=== PATIENT | female | born 1965 | race Caucasian/White ===

== ENCOUNTER → 2021-06-11 08:57 | Outpatient (BNVA) | payer SELFPAY | PROVIDERS: Visit Provider Nurse Practitioner Family | DX: M79.641 Pain in right hand (principal); E78.5 Hyperlipidemia, unspecified; Z78.0 Asymptomatic menopausal state; F17.200 Nicotine dependence, unspecified, uncomplicated; M19.041 Primary osteoarthritis, right hand | CPT/HCPCS: 73130; 80053; 80061; 82306; 84443; 85025 ==

== ENCOUNTER → 2021-10-18 08:33 | Outpatient (BNVA) | payer SELFPAY | PROVIDERS: Visit Provider Nurse Practitioner Family | DX: R06.00 Dyspnea, unspecified (principal); E78.5 Hyperlipidemia, unspecified; Z79.899 Other long term (current) drug therapy | CPT/HCPCS: 71046; 80053; 80061 ==

== ENCOUNTER → 2022-04-08 12:04 | Outpatient (BNVA) | payer SELFPAY | PROVIDERS: Visit Provider Nurse Practitioner Family | DX: E78.5 Hyperlipidemia, unspecified (principal); M79.7 Fibromyalgia; F32.A Depression, unspecified; F43.21 Adjustment disorder with depressed mood; F17.200 Nicotine dependence, unspecified, uncomplicated; Z12.2 Encounter for screening for malignant neoplasm of respiratory organs; K59.00 Constipation, unspecified; J45.909 Unspecified asthma, uncomplicated | CPT/HCPCS: 80053; 80061 ==

== ENCOUNTER 2022-06-06 12:57 | Emergency (ER) | payer MEDICAID, SELFPAY ==
[2022-06-06] VITALS (18 sets, daily range): BP systolic 112–164; BP diastolic 50–99; PULSE 61–73; RESP 13–24; O2SAT 93–99; BMI 23.3
--- NOTE | 2022-06-06 13:02 | XRR_ITS ---
PROCEDURE INFORMATION: Exam: XR Chest Exam date and time: 06/06/2022 1:27 PM Age: 56 years old Clinical indication: Cough and dyspnea; Additional info: Dyspnea/cough TECHNIQUE: Imaging protocol: Radiologic exam of the chest. Views: 1 view. COMPARISON: CR XR chest 2V* [id number] 10/18/2021 8:38 AM FINDINGS: Lungs: Unremarkable. No consolidation. Pleural spaces: Unremarkable. No pleural effusion. No pneumothorax. Heart/Mediastinum: Unremarkable. No cardiomegaly. Bones/joints: Unremarkable. XR/XR chest 1V portable [id number] IMPRESSION: No acute findings.
--- NOTE | 2022-06-06 13:02 | ECG_ITS ---
[facility] Test Date: 2022-06-06 Pat Name: Brooke Quiroga Department: Room: Gender: Female Acquisition Advisor: : 1965 Requested By: Case Bearden Order Number: [id number] Mei MD: Natividad Singletary M.D. Measurements Intervals [place] Rate: 62 P: 82 AR: 136 QRS: 73 QRSD: 86 T: 74 QT: 413 QTc: 422 Interpretive Statements SINUS RHYTHM No previous ECG available for comparison Electronically Signed On 06-07-2022 9:23:49 CUSTOMER CONTACT SPECIALIST by Natividad Singletary M.D. [id number]
--- NOTE | 2022-06-06 13:03 | ED_ITS ---
HPI - Chest Pain General: Chief Complaint: Chest Pain Stated Complaint: CHEST PRESSURE Time Seen by Provider: 06/06/22 13:01 Source: patient Mode of arrival: EMS History of Present Illness: 56-year-old female presents emergency room complaining of chest pressure and dizziness vertiginous-like dizziness with tingling in both arms she has also been nauseous. She has a chest discomfort that is notthing that worsens or improves. She was given nitro sublingual as well as 324 aspirin and no relief of her symptoms. The dizziness is a new symptom today. She did have a little bit of left ear pain with it as well no drainage from the ear. No fever sweats or chills no productive cough no shortness of breath. MD complaint: chest discomfort Timing of current episode: episodic Prior episodes: No Onset: during rest Pain location: left chest Pain radiation: none Severity: mild Quality: aching and heaviness Relieving factors: nothing Exacerbating factors: nothing Associated symptoms: Deny abdominal pain, diaphoresis, dyspnea, fever(s), leg edema, nausea, palpitations or vomiting Review of Systems Const: Denies: fever(s), chills or diaphoresis ENMT: Denies: throat pain, ear or mastoid pain, nasal discharge or nasal congestion Card: Reports: chest pain; Denies: palpitations, irregular heart rhythm, edema, dyspnea on exertion or orthopnea Resp: Reports: non-productive cough and wheezing; Denies: dyspnea or productive cough GI: Denies: abdominal pain, nausea or vomiting : Denies: flank pain, difficulty voiding, dysuria, urinary frequency or urinary urgency Skin/Breast: Denies: rash or pruritus Neuro: Denies: headache(s) PFSH ED PFSH: Medical History Arthritis Hyperlipidemia Family History Other CAD (coronary artery disease) Cancer Diabetes Hyperlipidemia Hypertension Lung disease Stroke Social History Smoking and tobacco status: never smoked Physical Exam Const: GENERAL APPEARANCE: cooperative and comfortable ORIENTATION/CONSCIOUSNESS: Yes awake HENMT: COMMON NORMALS: normocephalic, atraumatic, hearing grossly normal bila terally, external ears normal, EAC's normal, TM's normal bilaterally, Normal nasal mucous membranes and turbinates present, moist oral mucous membranes and oropharynx normal HEAD & SCALP: normocephalic and atraumatic NOSE: Normal nasal mucous membranes and turbinates present EXTERNAL EAR: Yes external ears normal EXTERNAL AUDITORY CANAL: EAC's normal TYMPANIC MEMBRANE: TM's normal bilaterally Resp: COMMON NORMALS: normal respiratory effort, No retractions and No use of accessory muscles AUSCULTATION: rhonchi and wheezes Cardio: COMMON NORMALS: regular rate, regular rhythm and No murmurs present (Cardio) RATE: regular rate RHYTHM: regular rhythm GI: COMMON NORMALS: Soft to palpation and No hepatosplenomegaly present AUSCULTATION: Yes normoactive bowel sounds PALPATION: Yes Soft to palpation, No Tenderness to palpation present (GI), No Guarding due to palpation present (GI) and Yes No hepatosplenomegaly present Extremity: COMMON NORMALS: normal to inspection, capillary refill normal, no clubbing, cyanosis or edema, no calf tenderness and no pedal edema Skin: COMMON NORMALS: no rashes or lesions noted GENERAL SKIN EXAM: no rashes or lesions noted Course Vital Signs: Vital signs: Vital Signs Pulse Rate 61 06/06/22 17:30 Respiratory Rate 24 H 06/06/22 17:30 Blood Pressure 117/64 06/06/22 17:30 Pulse Oximetry 95 06/06/22 17:30 Oxygen Delivery Me thod 06/06/22 13:26 MDM - Chest Pain Medical Decision Making Labs imaging and EKG reviewed in chart no acute ST changes on EKG. Chest x-ray shows hyperinflation consistent with COPD but otherwise normal. No significant lymphocytopenia do not suspect COVID at this point. Discharge patient home with supportive cares steroid taper and albuterol as needed follow-up with primary care if not improving Medical Records I reviewed the patient's medical records. Lab Data I reviewed the patient's lab results. 06/06/22 13:20 06/06/22 13:20 Radiology Impressions Chest X-Ray 06/06/22 13:02 IMPRESSION: No acute findings. Laboratory Results WBC 6.2 10^3/uL (4.0-10.0) 06/06/22 13:20 RBC 4.66 10^6/uL (4.1-5.3) 06/06/22 13:20 Hgb 15.0 g/dL (11.5-15.3) 06/06/22 13:20 Hct 45.7 % (37.0-47.0) 06/06/22 13:20 MCV 98.1 fl (81-99) 06/06/22 13:20 MCH 32.2 pg (28.0-34.0) 06/06/22 13:20 MCHC 32.8 g/dL (30.0-36.0) 06/06/22 13:20 RDW 14.0 % (12.1-15.1) 06/06/22 13:20 Plt Count 335 10^3/cmm (130-400) 06/06/22 13:20 MPV 9.2 fL (7.4-10.4) 06/06/22 13:20 Neut % (Auto) 64.8 % 06/06/22 13:20 Lymph % (Auto) 25.1 % 06/06/22 13:20 [place] % (Auto) 7.4 % 06/06/22 13:20 Eos % (Auto) 1.9 % 06/06/22 13:20 Baso % (Auto) 0.6 % 06/06/22 13:20 Neut # (Auto) 4.00 10^3/uL (1.8-7.7) 06/06/22 13:20 Lymph # (Auto) 1.6 10^3/uL (0.8-4.8) 06/06/22 13:20 [place] # (Auto) 0.5 10^3/uL (0.2-0.9) 06/06/22 13:20 Eos # (Auto) 0.1 10^3/uL (0.0-0.8) 06/06/22 13:20 Baso # (Auto) 0.0 10^3/uL (0.0-0.1) 06/06/22 13:20 Nucleated RBC % (auto) 0 % 06/06/22 13:20 Nucleated RBCs # 0.0 /100WBC 06/06/22 13:20 Sodium 141 mmol/L (136-145) 06/06/22 13:20 Potassium 3.9 mmol/L (3.5-5.1) 06/06/22 13:20 Chloride 103 mmol/L (98-107) 06/06/22 13:20 Carbon Dioxide 28 mmol/L (22-29) 06/06/22 13:20 Anion Gap 13.9 (5-19) 06/06/22 13:20 BUN 7 mg/dL (6-20) 06/06/22 13:20 Creatinine 0.5 mg/dL (0.5-0.9) 06/06/22 13:20 GFR Calculation 127.6 mL/min (90-130) 06/06/22 13:20 Glucose 113 mg/dL (65-115) 06/06/22 13:20 Calculated Osmolality 291 mOsm/kg (285-295) 06/06/22 13:20 Calcium 9.1 mg/dL (8.5-10.5) 06/06/22 13:20 Total Bilirubin 0.3 mg/dL (0.15-1.2) 06/06/22 13:20 AST 25 U/L (0-32) 06/06/22 13:20 ALT 23 U/L (0-33) 06/06/22 13:20 Alkaline Phosphatase 71 U/L (35-105) 06/06/22 13:20 Troponin T Baseline 7 ng/L (0-10) 06/06/22 13:20 Troponin T 120 Minute 7.71 ng/L (0-10) 06/06/22 16:24 Delta Troponin T 0.71 ABS# (0-10) 06/06/22 16:24 Total Protein 7.3 g/dL (6.6-8.7) 06/06/22 13:20 Albumin 4.6 g/dL (3.5-5.2) 06/06/22 13:20 Globulin 2.7 g/dL (1.3-4.6) 06/06/22 13:20 Coronavirus 229E (PCR) Cancelled 06/06/22 14:23 Influenza Type A Ag Cancelled 06/06/22 14:23 Influenza Type B Ag Cancelled 06/06/22 14:23 SARS-CoV-2 (PCR) Cancelled 06/06/22 14:23 Discharge Plan Discharge Patient Disposition: Home Clinical Impression: COPD with acute exacerbation Condition: Stable Prescriptions: New albuterol sulfate 90 mcg/actuation HFA aerosol inhaler 2 inh INHALATION Q4H PRN (Reason: shortness of breath or wheezing) Qty: 18 0RF No Action epinephrine [EpiPen] 0.3 mg/0.3 mL auto-injector 0.3 mg IM Q10M PRN Rx Instructions: for 2 doses celecoxib [Celebrex] 100 mg capsule 100 mg PO BID 90 Days Qty: 180 1RF diclofenac sodium [Voltaren Arthritis Pain] 1 % gel 2 g topical QID Qty: 100 6RF polyethylene glycol 3350 [Miralax] 17 gram/dose powder 17 g PO BID Qty: 510 3RF simvastatin 40 mg tablet 40 mg PO DAILY 30 Days Qty: 30 3RF duloxetine 30 mg capsule,delayed release(DR/EC) 30 mg PO DAILY 30 Days Qty: 30 3RF alprazolam 0.25 mg tablet 0.25 mg PO .Qhs PRN (Reason: anxiety) 30 Days Qty: 30 0RF cholecalciferol (vitamin D3) 50 mcg (2,000 unit) capsule 50 mcg PO DAILY 90 Days Qty: 90 1RF Discharge Orders: Discharge ED (Routine); Ordered 06/06/22 Ordered By: Case Norris Discharge Diet: Usual diet Discharge Activity: Resume usual activity Patient Instructions: Opioid Safety, Pain Management Activity Restrictions/Additional Instructions: You were seen today for atypical chest pain. Your cardiac enzymes and EKGs were normal. Chest x-ray was normal as well. I suspect you have some some mild COPD that is exacerbated. Recommend that you use a steroid taper and use a lbuterol every 4 hours while awake for the next several days follow-up with your primary care doctor. Coding Level of Care Code ED Costume Cutter for Chg Fwd Exam Detailed
[2022-06-06 13:28] LABS: Basophils % 0.6 %; Eosinophils # 0.1 10^3/uL (0.0-0.8); Eosinophils % 1.9 %; Hematocrit 45.7 % (37.0-47.0); Lymphocytes # 1.6 10^3/uL (0.8-4.8); Lymphocytes % 25.1 %; Mean Corpuscular HGB Conc 32.8 g/dL (30.0-36.0); Mean Corpuscular Hemoglobin 32.2 pg (28.0-34.0); Mean Corpuscular Volume 98.1 fl (81-99); Mean Platelet Volume 9.2 fL (7.4-10.4); Monocytes # 0.5 10^3/uL (0.2-0.9); Monocytes % 7.4 %; Neutrophils % 64.8 %; Nucleated Red Blood Cells % 0 %; Platelet Count 335 10^3/cmm (130-400); Red Blood Count 4.66 10^6/uL (4.1-5.3); White Blood Count 6.2 10^3/uL (4.0-10.0)
[2022-06-06] MEDS: LORazepam 2 mg Tablet PO (13:40)
[2022-06-06 13:53] LABS: Troponin(5th) Baseline 7 ng/L (0-10)
[2022-06-06 13:54] LABS: Alanine Aminotransferase 23 U/L (0-33); Albumin Level 4.6 g/dL (3.5-5.2); Alkaline Phosphatase 71 U/L (35-105); Anion Gap 13.9 (5-19); Aspartate Amino Transferase 25 U/L (0-32); Blood Urea Nitrogen 7 mg/dL (6-20); Calcium 9.1 mg/dL (8.5-10.5); Carbon Dioxide 28 mmol/L (22-29); Chloride 103 mmol/L (98-107); Globulin 2.7 g/dL (1.3-4.6); Glomerular Filtration Rate 127.6 mL/min (90-130); Glucose 113 mg/dL (65-115); Osmolality Calculated 291 mOsm/kg (285-295); Potassium 3.9 mmol/L (3.5-5.1); Sodium 141 mmol/L (136-145); Total Bilirubin 0.3 mg/dL (0.15-1.2); Total Protein 7.3 g/dL (6.6-8.7)
--- NOTE | 2022-06-06 14:53 | ECG_ITS ---
[facility] Test Date: 2022-06-06 Pat Name: Brooke Quiroga Department: Room: Gender: Female Tetryl Screen Operator: : 1965 Requested By: Case Bearden Order Number: [id number] Mei MD: Natividad Singletary M.D. Measurements Intervals [place] Rate: 63 P: 70 FL: 137 QRS: 63 QRSD: 80 T: 63 QT: 410 QTc: 421 Interpretive Statements SINUS RHYTHM Compared to ECG 06/06/2022 13:11:12 No significant changes Electronically Signed On 06-07-2022 20:40:52 NURSE INFORMATICS EDUCATOR by Natividad Singletary M.D. [email or web address] [email or web address] Biosciencesmarymount [email or web address]/[id number]
[2022-06-06 17:01] LABS: Troponin 5 2HR 7.71 ng/L (0-10)
[2022-06-06 17:13] LABS: Troponin 5 2HR Delta 0.71 ABS# (0-10)
== END 2022-06-06 18:00 | disposition home or self-care (01) ==
PROVIDERS: Emergency Provider Family Medicine
DX: J44.1 Chronic obstructive pulmonary disease with (acute) exacerbation (principal); Z20.822 Contact with and (suspected) exposure to COVID-19; E78.5 Hyperlipidemia, unspecified
CPT/HCPCS: 36415; 71045; 80053; 84484; 85025; 93005; 99285

== ENCOUNTER 2022-06-07 16:36 | Emergency (ER) | payer MEDICAID, SELFPAY ==
[2022-06-07 16:51] VITALS: BP 146/73; PULSE 58; RESP 16; TEMP 36.8; O2SAT 98; BMI 23.5
[2022-06-07 16:55] VITALS: BP 146/73; PULSE 65; RESP 17; O2SAT 98
--- NOTE | 2022-06-07 17:14 | W.ED.CHESTPA ---
HPI - Chest Pain General: Chief Complaint: Chest Pain Stated Complaint: Chest Pain Time Seen by Provider: 06/07/22 17:14 History of Present Illness: Ms Quiroga is a 56-year-old lady with history of tobaccoism, hypertension, hyperlipidemia, fibromyalgia presenting to the emergency department due to chest pain. She reports onset of symptoms yesterday starting with intermittent chest pressure, lightheadedness, headache, and tingling. Symptoms are not particularly worsened or made better by anything. Symptoms persisted and she was evaluated yesterday without clear etiology identified. Since time of evaluation symptoms have persisted and are moderate in intensity. Denies frequent history of headaches. No other specific changes in health, exacerbating, or alleviating factors identified. Onset (ago): day(s) Timing of current episode: constant Pain location: substernal Severity: moderate Quality: tightness and aching Relieving factors: nothing Exacerbating factors: nothing Associated symptoms: Reports other Review of Systems General: Reports: 10 or more systems reviewed and unremarkable except in HPI and below PFSH ED PFSH: Medical History Arthritis Hyperlipidemia Family History Other CAD (coronary artery disease) Cancer Diabetes Hyperlipidemia Hypertension Lung disease Stroke Social History Smoking and tobacco status: never smoked Physical Exam Const: COMMON NORMALS: patient oriented x3 and alert GENERAL APPEARANCE: cooperative and well developed HENMT: COMMON NORMALS: normocephalic and atraumatic HEAD & SCALP: normocephalic and atraumatic THROAT: posterior oropharynx normal Eye: COMMON NORMALS: conjunctivae normal CONJUNCTIVA: Yes conjunctivae normal SCLERA: sclerae normal Neck/C-Spine: COMMON NORMALS: supple GENERAL: Yes trachea midline Resp: COMMON NORMALS: normal respiratory effort and clear to auscultation bilaterally EFFORT & INSPECTION: Yes able to speak in complete sentences AUSCULTATION: clear to auscultation bilaterally Cardio: COMMON NORMALS: regular rate and regular rhythm RATE: regular rate RHYTHM: regular rhythm GI: COMMON NORMALS: Soft to palpation PALPATION: Yes Soft to palpation and No Tenderness to palpation present (GI) PERCUSSION: normal to percussion Extremity: GENERAL: Yes normal exam except as noted and No edema Neuro: COMMON NORMALS: patient oriented x3, CN's II-XII intact bilaterally, moves all extremities, no focal motor deficits and no sensory deficits noted SENSORIUM/ORIENTATION: Yes alert and No Orientation impaired Psych: COMMON NORMALS: mental status grossly normal and Normal thought process present THOUGHT PROCESS: Normal thought process present Course Vital Signs: Vital signs: Vital Signs Temperature 98.2 F 06/07/22 16:51 Pulse Rate 62 06/07/22 21:30 Respiratory Rate 15 06/07/22 21:30 Blood Pressure 139/58 06/07/22 21:30 Pulse Oximetry 97 06/07/22 21:30 Oxygen Delivery Me thod 06/07/22 16:55 MDM - Chest Pain Medical Decision Making 56-year-old lady presenting for chest pain and generalized illness. Exam as above. Patient is nontoxic and there are no focal neurologic deficits. EKG shows sinus rhythm with bradycardia, no STEMI. No significant hematologic or metabolic abnormalities. Troponin negative with greater than 6 hours of symptoms. Prior chest x-ray reviewed, given physical exam I do not feel that repeat is needed. CT head negative for acute intracranial pathology. Patient improved with headache cocktail. Most likely etiology of patient's symptoms is headache and atypical chest pain. Patient is comfortable with outpatient follow-up for further evaluation of chest pain. The results of ED evaluation were discussed with the patient including prescriptions and/or symptomatic cares (if applicable) including appropriate and responsible use, followup plan, and return precautions. The patient verbalized understanding and felt safe for discharge. Medical Records I reviewed the patient's medical records. Lab Data I reviewed the patient's lab results. 06/07/22 16:57 06/07/22 16:[address] 06/07/22 17:25 IMPRESSION: No acute intracranial abnormality. Laboratory Results WBC 6.8 10^3/uL (4.0-10.0) 06/07/22 16:57 RBC 4.71 10^6/uL (4.1-5.3) 06/07/22 16:57 Hgb 15.1 g/dL (11.5-15.3) 06/07/22 16:57 Hct 45.7 % (37.0-47.0) 06/07/22 16:57 MCV 97.0 fl (81-99) 06/07/22 16:57 MCH 32.1 pg (28.0-34.0) 06/07/22 16:57 MCHC 33.0 g/dL (30.0-36.0) 06/07/22 16:57 RDW 14.0 % (12.1-15.1) 06/07/22 16:57 Plt Count 334 10^3/cmm (130-400) 06/07/22 16:57 MPV 9.6 fL (7.4-10.4) 06/07/22 16:57 Neut % (Auto) 62.0 % 06/07/22 16:57 Lymph % (Auto) 29.5 % 06/07/22 16:57 [place] % (Auto) 6.7 % 06/07/22 16:57 Eos % (Auto) 1.3 % 06/07/22 16:57 Baso % (Auto) 0.4 % 06/07/22 16:57 Neut # (Auto) 4.22 10^3/uL (1.8-7.7) 06/07/22 16:57 Lymph # (Auto) 2.0 10^3/uL (0.8-4.8) 06/07/22 16:57 [place] # (Auto) 0.5 10^3/uL (0.2-0.9) 06/07/22 16:57 Eos # (Auto) 0.1 10^3/uL (0.0-0.8) 06/07/22 16:57 Baso # (Auto) 0.0 10^3/uL (0.0-0.1) 06/07/22 16:57 Nucleated RBC % (auto) 0 % 06/07/22 16:57 Nucleated RBCs # 0.0 /100WBC 06/07/22 16:57 D-Dimer 0.38 ug/mIFEU (0-0.59) 06/07/22 16:57 Sodium 141 mmol/L (136-145) 06/07/22 16:57 Potassium 3.5 mmol/L (3.5-5.1) 06/07/22 16:57 Chloride 102 mmol/L (98-107) 06/07/22 16:57 Carbon Dioxide 27 mmol/L (22-29) 06/07/22 16:57 Anion Gap 15.5 (5-19) 06/07/22 16:57 BUN 9 mg/dL (6-20) 06/07/22 16:57 Creatinine 0.6 mg/dL (0.5-0.9) 06/07/22 16:57 GFR Calculation 103.4 mL/min (90-130) 06/07/22 16:57 Glucose 97 mg/dL (65-115) 06/07/22 16:57 Calculated Osmolality 291 mOsm/kg (285-295) 06/07/22 16:57 Calcium 10.1 mg/dL (8.5-10.5) 06/07/22 16:57 Total Bilirubin 0.3 mg/dL (0.15-1.2) 06/07/22 16:57 AST 23 U/L (0-32) 06/07/22 16:57 ALT 24 U/L (0-33) 06/07/22 16:57 Alkaline Phosphatase 76 U/L (35-105) 06/07/22 16:57 Troponin T Baseline 7 ng/L (0-10) 06/07/22 16:57 Troponin T 120 Minute 7.33 ng/L (0-10) 06/07/22 20:30 Delta Troponin T 0.33 ABS# (0-10) 06/07/22 20:30 Total Protein 7.6 g/dL (6.6-8.7) 06/07/22 16:57 Albumin 4.5 g/dL (3.5-5.2) 06/07/22 16:57 Globulin 3.1 g/dL (1.3-4.6) 06/07/22 16:57 Lipase 39 U/L (13-60) 06/07/22 16:57 Discharge Plan Discharge Patient Disposition: Home Clinical Impression: Atypical chest pain, Head ache Condition: Stable Prescriptions: No Action epinephrine [EpiPen] 0.3 mg/0.3 mL auto-injector 0.3 mg IM Q10M PRN Rx Instructions: for 2 doses celecoxib [Celebrex] 100 mg capsule 100 mg PO BID 90 Days Qty: 180 1RF diclofenac sodium [Voltaren Arthritis Pain] 1 % gel 2 g topical QID Qty: 100 6RF polyethylene glycol 3350 [Miralax] 17 gram/dose powder 17 g PO BID Qty: 510 3RF simvastatin 40 mg tablet 40 mg PO DAILY 30 Days Qty: 30 3RF duloxetine 30 mg capsule,delayed release(DR/EC) 30 mg PO DAILY 30 Days Qty: 30 3RF alprazolam 0.25 mg tablet 0.25 mg PO .Qhs PRN (Reason: anxiety) 30 Days Qty: 30 0RF olmesartan-hydrochlorothiazide 20-12.5 mg tablet 1 tab PO DAILY 30 Days Qty: 30 0RF clonidine HCl 0.1 mg tablet 0.1 mg PO TID PRN (Reason: hypertensive emergency) Qty: 90 0RF Rx Instructions: take for SBP >180 or DBP>100 cholecalciferol (vitamin D3) 50 mcg (2,000 unit) capsule 50 mcg PO DAILY 90 Days Qty: 90 1RF albuterol sulfate 90 mcg/actuation HFA aerosol inhaler 2 inh INHALATION Q4H PRN (Reason: shortness of breath or wheezing) Qty: 18 0RF Discharge Orders: Discharge ED (Routine); Ordered 06/07/22 Ordered By: Raj Tobias Discharge Diet: Usual diet Discharge Activity: Increase activity as tolerated Patient Instructions: Chest Pain (ED), Acute Headache (ED) Activity Restrictions/Additional Instructions: Thank you for visiting the emergency department. You were seen and evaluated for chest pain associated with headache and generalized symptoms. The exact cause of your symptoms is unclear though does not appear to need hospitalization at this time. I will message case management for follow-up for further cardiac testing. Additionally please follow-up with your primary care provider. Return to the emergency department for uncontrolled symptoms or anything else that you are concerned about it feel needs emergency department evaluation. Coding Level of Care Code ED Mold Maker Apprentice for Pam [place]wkee Exam Comprehensive
--- NOTE | 2022-06-07 17:15 | ECG_ITS ---
[facility] Test Date: 2022-06-07 Pat Name: Brooke Quiroga Department: Room: Gender: Female Plater Hot Dip: : 1965 Requested By: Case Bearden Order Number: [id number] Mei MD: Natividad Singletary M.D. Measurements Intervals [place] Rate: 58 P: 64 DE: 137 QRS: 42 QRSD: 81 T: 50 QT: 448 QTc: 440 Interpretive Statements SINUS BRADYCARDIA Compared to ECG 06/06/2022 14:53:06 Sinus rhythm no longer present Electronically Signed On 06-07-2022 20:30:22 IRRIGATION SUPERVISOR by Natividad Singletary M.D. [email or web address] memorial hospitalMazu Networks/store/OM/[id number]
--- NOTE | 2022-06-07 17:25 | CTR_ITS ---
PROCEDURE INFORMATION: Exam: CT Head Without Contrast Exam date and time: 06/07/2022 5:57 PM Age: 56 years old Clinical indication: Pain; Headache not specified TECHNIQUE: Imaging protocol: Computed tomography of the head without contrast. Radiation optimization: All CT scans at this facility use at least one of these dose optimization techniques: automated exposure control; mA and/or kV adjustment per patient size (includes targeted exams where dose is matched to clinical indication); or iterative reconstruction. COMPARISON: No relevant prior studies available. RADIATION DOSE METRICS: Total DLP (mGy-cm): 1041.08 FINDINGS: Brain: Normal. No hemorrhage. Unremarkable white matter. No mass effect. Cerebral ventricles: No ventriculomegaly. Paranasal sinuses: Visualized sinuses are unremarkable. No fluid levels. Mastoid air cells: Visualized mastoid air cells are well aerated. Bones/joints: Unremarkable. No acute fracture. Soft tissues: Unremarkable. CT/CT head wo con* [id number] IMPRESSION: No acute intracranial abnormality.
[2022-06-07 17:32] LABS: Basophils % 0.4 %; Eosinophils # 0.1 10^3/uL (0.0-0.8); Eosinophils % 1.3 %; Hematocrit 45.7 % (37.0-47.0); Hemoglobin 15.1 g/dL (11.5-15.3); Lymphocytes % 29.5 %; Mean Corpuscular Hemoglobin 32.1 pg (28.0-34.0); Mean Platelet Volume 9.6 fL (7.4-10.4); Monocytes # 0.5 10^3/uL (0.2-0.9); Monocytes % 6.7 %; Neutrophils # 4.22 10^3/uL (1.8-7.7); Nucleated Red Blood Cells % 0 %; Platelet Count 334 10^3/cmm (130-400); Red Blood Count 4.71 10^6/uL (4.1-5.3); White Blood Count 6.8 10^3/uL (4.0-10.0)
[2022-06-07 17:40] LABS: D Dimer 0.38 ug/mIFEU (0-0.59)
[2022-06-07 17:45] LABS: Troponin(5th) Baseline 7 ng/L (0-10)
[2022-06-07 17:47] LABS: Alanine Aminotransferase 24 U/L (0-33); Albumin Level 4.5 g/dL (3.5-5.2); Alkaline Phosphatase 76 U/L (35-105); Anion Gap 15.5 (5-19); Aspartate Amino Transferase 23 U/L (0-32); Blood Urea Nitrogen 9 mg/dL (6-20); Calcium 10.1 mg/dL (8.5-10.5); Carbon Dioxide 27 mmol/L (22-29); Chloride 102 mmol/L (98-107); Globulin 3.1 g/dL (1.3-4.6); Glomerular Filtration Rate 103.4 mL/min (90-130); Glucose 97 mg/dL (65-115); Lipase 39 U/L (13-60); Osmolality Calculated 291 mOsm/kg (285-295); Potassium 3.5 mmol/L (3.5-5.1); Sodium 141 mmol/L (136-145); Total Bilirubin 0.3 mg/dL (0.15-1.2); Total Protein 7.6 g/dL (6.6-8.7)
--- NOTE | 2022-06-07 19:25 | ECG_ITS ---
[facility] Test Date: 2022-06-07 Pat Name: Brooke Quiroga Department: Room: Gender: Female Public Health Physician: : 1965 Requested By: Raj Tobias Order Number: [id number] Mei MD: Donn Resendiz M.D. Measurements Intervals [place] Rate: 62 P: 62 PA: 136 QRS: 63 QRSD: 87 T: 64 QT: 415 QTc: 422 Interpretive Statements SINUS RHYTHM Compared to ECG 06/07/2022 17:15:13 Sinus bradycardia no longer present Electronically Signed On 06-08-2022 10:30:40 FROG FARMER by Donn Resendiz M.D. [email or web address]/store/OM/[id number]
[2022-06-07] MEDS: acetaminophen 500 mg Tablet 1000 MG PO (19:43)
[2022-06-07] MEDS: diphenhydrAMINE 50 mg/mL SDV 1mL 12.5 MG IVP (20:26)
[2022-06-07] MEDS: ketorolac 30 mg/mL INJ 15 MG IVP (20:27)
[2022-06-07] MEDS: metoclopramide 5 mg/mL SDV 2 mL IVP (20:28)
[2022-06-07 21:15] LABS: Troponin 5 2HR 7.33 ng/L (0-10)
[2022-06-07 21:20] LABS: Troponin 5 2HR Delta 0.33 ABS# (0-10)
[2022-06-07 21:30] VITALS: BP 139/58; PULSE 62; RESP 15; O2SAT 97
--- NOTE | 2022-06-08 10:40 | DCPLANNER ---
manager pediatric had message to schedule an outpatient stress test. Patient does not have a primary care physician listed in the chart. manager pediatric called phone number [phone], unable to speak with patient or leave a voicemail. A recording stated that phone number has been changed or is no longer in service.
== END 2022-06-07 21:31 | disposition home or self-care (01) ==
PROVIDERS: Emergency Provider Emergency Medicine
DX: R07.89 Other chest pain (principal); R51.9 Headache, unspecified; E78.5 Hyperlipidemia, unspecified
CPT/HCPCS: 70450; 80053; 83690; 84484; 85025; 85378; 93005; 96374; 96375; 99285; J1200; J1885; J2765

== ENCOUNTER → 2022-07-19 12:34 | Outpatient (BNVA) | payer SELFPAY | PROVIDERS: Visit Provider Nurse Practitioner Family | DX: N20.0 Calculus of kidney (principal); R10.9 Unspecified abdominal pain | CPT/HCPCS: 74018 ==

== ENCOUNTER → 2022-08-12 15:14 | Outpatient (BNVA) | payer SELFPAY | PROVIDERS: PCP Family Medicine; Visit Provider Nurse Practitioner Family | DX: S69.92XA Unspecified injury of left wrist, hand and finger(s), initial encounter (principal); M25.532 Pain in left wrist; M79.642 Pain in left hand; X58.XXXA Exposure to other specified factors, initial encounter | CPT/HCPCS: 73110; 73130 ==

== ENCOUNTER → 2022-12-26 08:54 | Outpatient (BNVA) | payer SELFPAY | PROVIDERS: PCP Family Medicine; Visit Provider Nurse Practitioner Family | DX: R30.0 Dysuria (principal); N95.2 Postmenopausal atrophic vaginitis; N95.1 Menopausal and female climacteric states; B37.9 Candidiasis, unspecified; Z12.39 Encounter for other screening for malignant neoplasm of breast; Z78.0 Asymptomatic menopausal state; Z12.4 Encounter for screening for malignant neoplasm of cervix | CPT/HCPCS: 87491; 87591; 87624; 87661 ==

== ENCOUNTER → 2023-09-27 15:27 | Outpatient (BNVA) | payer MEDICAID, SELFPAY | PROVIDERS: PCP Family Medicine; Visit Provider Nurse Practitioner Family | DX: R10.9 Unspecified abdominal pain (principal); E78.5 Hyperlipidemia, unspecified; R91.1 Solitary pulmonary nodule; Z12.31 Encounter for screening mammogram for malignant neoplasm of breast | CPT/HCPCS: 80053; 80061; 83690 ==

== ENCOUNTER 2023-10-05 14:29 | Outpatient (CLI) | payer MEDICAID, SELFPAY ==
--- NOTE | 2023-10-05 15:00 | CTR_ITS ---
PROCEDURE INFORMATION: Exam: CT Chest With Contrast; Diagnostic Exam date and time: 10/05/2023 3:35 PM Age: 58 years old Clinical indication: Condition or disease; Lung condition and disease; Pulmonary nodule, solitary TECHNIQUE: Imaging protocol: Diagnostic computed tomography of the chest with contrast. Radiation optimization: All CT scans at this facility use at least one of these dose optimization techniques: automated exposure control; mA and/or kV adjustment per patient size (includes targeted exams where dose is matched to clinical indication); or iterative reconstruction. Contrast material: OMNI 350; Contrast volume: 100 ml; Contrast route: INTRAVENOUS (IV); COMPARISON: CR XR chest 1V portable [id number] 06/06/2022 1:27 PM RADIATION DOSE METRICS: Total DLP (mGy-cm): 235.11 FINDINGS: Thyroid: Grossly unremarkable. Lungs: No focal consolidation. 7 mm right upper lobe pulmonary nodule (image 47 of series 7). Pleural spaces: No pleural effusion. No pneumothorax. Heart: No cardiomegaly. No pericardial effusion. Mediastinal space: Trachea and central airways are grossly patent. No evidence of mediastinal mass or hematoma. Lymph nodes: No evidence of mediastinal or hilar adenopathy. Vasculature: No aneurysmal dilatation of the thoracic aorta. No evidence of dissection. Though this study is not tailored to evaluate for pulmonary thromboembolism, there is no evidence of PE within limitations of respiratory motion. Bones/joints: No evidence of acute fracture or aggressive osseous lesion. Soft tissues: No fluid collection or hematoma in the superficial soft tissues. Other findings: No evidence of acute abnormality in the upper abdomen. CT/CT chest w con* 31003 IMPRESSION: 1. Right upper lobe pulmonary nodule measuring 7 mm. Follow-up up CT of the chest in 6 months is recommended. References: Daniele Boo et al. Guidelines for Management of Incidental Pulmonary Nodules Detected on CT Images: From the Fleischner Society 2017. Radiology. 2017;284(1):228-243.
[2023-10-05] MEDS: iohexol 350 mg/mL 500 mL Btl (per mL) IV (15:41)
== END 2023-10-05 14:30 | disposition home or self-care (01) ==
LOC: RAD 14:32
PROVIDERS: PCP Nurse Practitioner Family; Visit Provider Nurse Practitioner Family
DX: R91.1 Solitary pulmonary nodule (principal)
CPT/HCPCS: 71260; Q9967

== ENCOUNTER 2023-10-12 06:56 | Outpatient (CLI) | payer MEDICAID, SELFPAY ==
--- NOTE | 2023-10-12 07:15 | US_ITS ---
WS: [id number] Complete ABDOMINAL ULTRASOUND HISTORY: pain COMPARISON: None available. Liver: 15.6 cm in length. Normal size liver and echogenicity. No bile duct dilatation or mass. Portal Vein: Normal hepatopetal flow with monophasic waveform. Gallbladder: Normally distended gallbladder with no stones or wall thickening. CBD: 0.2 cm Pancreas: Normal size and echogenicity. Right kidney: 11.3 cm x 5.7 x 4.6 cm. Cortex:1.2 cm. Normal size and echogenicity. No hydronephrosis or mass. Left kidney: 11.2 cm x 5.1 cm x 4.6 cm. Cortex: 1.3 cm. Normal size and echogenicity. No hydronephrosis or mass. Spleen: 8.3 cm. Normal size and echogenicity. Aorta and IVC: Unremarkable abdominal aorta and IVC. US/US abdomen complete* [id number] Impression: Normal complete abdomen ultrasound.
== END 2023-10-12 06:57 | disposition home or self-care (01) ==
LOC: RAD 06:56
PROVIDERS: PCP Nurse Practitioner Family; Visit Provider Nurse Practitioner Family
DX: R10.9 Unspecified abdominal pain (principal)
CPT/HCPCS: 76700

== ENCOUNTER → 2023-11-23 09:56 | Outpatient (BNVA) | payer MEDICAID, SELFPAY | PROVIDERS: PCP Nurse Practitioner Family; Referring Provider Nurse Practitioner Family; Visit Provider Student in an Organized Health Care Education/Training Program | DX: G56.03 Carpal tunnel syndrome, bilateral upper limbs; M18.0 Bilateral primary osteoarthritis of first carpometacarpal joints | CPT/HCPCS: 73130 ==

== ENCOUNTER → 2023-12-08 09:48 | Outpatient (BNVA) | payer MEDICAID, SELFPAY | PROVIDERS: PCP Nurse Practitioner Family; Visit Provider Student in an Organized Health Care Education/Training Program | DX: M65.311 Trigger thumb, right thumb (principal); G56.03 Carpal tunnel syndrome, bilateral upper limbs; M65.4 Radial styloid tenosynovitis [de Quervain]; M18.11 Unilateral primary osteoarthritis of first carpometacarpal joint, right hand | CPT/HCPCS: 73130 ==

== ENCOUNTER 2023-12-14 10:31 | Day surgery (SDC) | payer MEDICAID, SELFPAY ==
[2023-12-14 10:58] VITALS: BP 133/85; PULSE 70; RESP 18; TEMP 36.2; O2SAT 98
[2023-12-14 11:00] VITALS: BMI 26.1
[2023-12-14] MEDS: acetaminophen 1,000 MG/100 ML PIGGYBACK 400 MG IV (11:23)
[2023-12-14] MEDS: scopolamine 1.5 Patch 1 PATCH TRANSDERMA (11:23)
[2023-12-14] MEDS: ketorolac 30 mg/mL INJ IVP (11:23)
[2023-12-14] MEDS: sodium chloride 0.9% 1,000 ML 30 ML IV (11:23)
--- NOTE | 2023-12-14 11:58 | W.PM.OPSUD ---
Surgery/Procedure H&P Update DATE OF PROCEDURE: December 14, 2023 DATE H&P PERFORMED: 12/06/23 H&P UPDATE INFORMATION: I have reviewed H&P completed within last 30 days, I have examined patient prior to procedure and No changes to prior documentation PREOP DIAGNOSIS: Right carpal tunnel syndrome, right trigger thumb right wrist de Quervain's PRIMARY INDICATION FOR PROCEDURE: Right carpal tunnel syndrome, right trigger thumb, right wrist de Quervain's PLANNED PROCEDURE: Operation Date: 12/14/23 12:25 Proposed Procedures p Carpal Tunnel Release(Right) - DO sarah Ruiz Trigger Finger Release - RIGHT THUMB(Right) - DO sarah Ruiz Dequervain Release(Right) - Krishna Gonzalez DO
--- NOTE | 2023-12-14 12:18 | ANES.PREANE2 ---
Pre-Anesthetic Assessment Height/Weight: Height 1.63 m Weight 68.946 kg Temp Pulse Resp BP Pulse Ox O2 Del Method 97.2 F L 70 18 133/85 98 Room Air 12/14/23 10:58 12/14/23 10:58 12/14/23 10:58 12/14/23 10:58 12/14/23 10:58 12/14/23 11:22 Preop Diagnosis: Right carpal tunnel syndrome, right trigger thumb right wrist de Quervain's Operation Date: 12/14/23 12:25 Proposed Procedures p Carpal Tunnel Release(Right) - Krishna Lisa, DO s Trigger Finger Release - RIGHT THUMB(Right) - Krishna [place], DO s Dequervain Release(Right) - Krishna [place], DO Last intake: Intake Last Liquid Date 12/13/23 Last Liquid Time 21:30 Last Solid Date 12/13/23 Last Solid Time 20:00 Social Tobacco 60 pack(s) per day Exam alert, oriented x 3, clear to auscultation bilaterally and regular rate & rhythm Airway Submandibular: within normal limits Cervical ROM: within normal limits Mallampati: Class I Pulmonary Asthma and Chronic Obstructive Pulmonary Disease CV/HEM Deep Vein Thrombosis None reported Hepatic None reported GI None reported Metabolic None reported Musc/skel None reported Anesthetic Plan ASA status: 3 Anesthesia: General Risk of > 500 ml blood loss (7ml/kg in children): No Medications/Allergies Home Medications Medication Instructions Recorded Confirmed Last Taken Type ibuprofen 200 mg tablet 800 mg PO Q6H PRN pain 11/27/23 12/13/23 12/06/23 History Allergies Allergy/AdvReac Type Severity Reaction Status Date / Time azithromycin Allergy REY Verified 12/14/23 10:52 CECI ceftriaxone [From Rocephin] Allergy REY Verified 12/14/23 10:52 CECI ciprofloxacin [From Cipro] Allergy REY Verified 12/14/23 10:52 CECI latex Allergy ALGY-Redness Verified 12/14/23 10:52 of Skin levofloxacin [From Levaquin] Allergy REY Verified 12/14/23 10:52 CECI morphine Allergy Unknown Verified 12/14/23 10:52 nitrofurantoin Allergy REY Verified 12/14/23 10:52 [From Macrobid] CECI prednisone Allergy steroid Verified 12/14/23 10:52 psychosis Sulfa (Sulfonamide Allergy REY Verified 12/14/23 10:52 Antibiotics) CECI Current Medications Generic Name Dose Route Start Last Admin Trade Name Freq PRN Reason Stop Dose Admin Sodium Chloride 1,000 mls @ 30 mls/hr 12/14/23 10:45 12/14/23 11:23 Sodium Chloride 0.9% IV 12/15/23 10:44 30 mls/hr .Q24H ТАТЬЯНА Administration PFSH Anesthesia Medical History Arthritis Hyperlipidemia Family History Father CAD (coronary artery disease) Diabetes Family history of premature coronary artery disease Hyperlipidemia Hypertension Lung disease Stroke Mother Cancer Hyperlipidemia Hypertension Grandfather Cancer Grandmother Clotting disorder Denies family history of Dementia Psychiatric illness Chronic kidney disease (CKD) Suicide Anesthesia complication Bleeding disorder Social History Smoking and tobacco/nicotine status: current every day tobacco/nicotine user cigarettes Packs smoked per day: 1.5 Years cigarettes smoked: 30 Alcohol intake: current Alcohol intake frequency: 3 or more drinks per day Alcohol type: beer Substance/Drug Use: never Data Anesthesia Cardiac Studies: No Data to Display
[2023-12-14] MEDS: clindamycin 600 MG/50 ML PREMIX 100 MG IV (13:12)
[2023-12-14] MEDS: ROPivacaine 0.5% SDV 30 mL 150 MG INJECTION (13:41)
[2023-12-14] MEDS: lidocaine-epi 1% 20 mL INJ INJECTION (13:41)
[2023-12-14 14:02] VITALS: BP 90/68; PULSE 74; RESP 20; TEMP 36.1; O2SAT 98
[2023-12-14 14:05] VITALS: BP 82/57; PULSE 75; RESP 18; O2SAT 96
--- NOTE | 2023-12-14 14:07 | W.PM.BPON ---
Date of Procedure: [12/14/2023] Surgeon: Krishna Gonzalez DO Receiver Dispatcher(s): None Procedure(s) performed: Right carpal tunnel release Right trigger thumb release Right wrist de Quervain's release Findings of the procedure(s): Patient was found to have right carpal tunnel syndrome, right trigger thumb and right wrist de Quervain's disease underwent procedure as planned without issues or complications taken to PACU in stable condition Estimated blood loss: 2 mL Specimen(s) removed: None Post-operative diagnosis: Right carpal tunnel syndrome right trigger thumb and right wrist de Quervain's disease
--- NOTE | 2023-12-14 14:09 | P.OP_ITS ---
Operative Report Date of procedure: December 14, 2023 Surgeon: Krishna Gonzalez DO Procedure: Preop Diagnosis: Right Carpal Tunnel Syndrome Right trigger thumb Right wrist de Quervain's disease Post-op diagnosis: Same Procedure done: 1. Right carpal tunnel release 2. Right trigger thumb release 3. Right wrist de Quervain's release Surgeon: Krishna Gonzalez DO Anesthesia: MAC (Local) Estimated blood loss: 2 mL Tourniquet time 12minutes IV fluids: See anesthesia record Complications: None Findings: See operative report narrative Condition: stable Disposition: same day Brief History: Patient is a pleasant 58 year-old female with right carpal tunnel syndrome, right trigger thumb, right wrist de Quervain's disease.. Patient has been worked up in the outpatient setting findings and physical examination consistent with this. Patient nerve conduction studies consistent with carpal tunnel syndrome. We detailed out patient's risk benefits complication alternatives with surgical and nonsurgical treatment options. Through shared decision making, patient agrees to proceed with surgical intervention of the right carpal tunnel release, right trigger thumb release, right wrist de Quervain's release. Patient understands and agrees with current plan. All questions answered. Patient elects to proceed with surgical intervention. Procedure: Patient seen and evaluated in the preoperative holding area. Consent was r eviewed and signed with patient. Correct extremity was marked. Patient was seen evaluated by the anesthesia department once cleared for surgery was brought back to the operative suite. Patient was kept on [facility] in supine position all bony prominences were well-padded patient properly secured to the bed. Right upper extremity was then placed onto an armboard. A nonsterile tourniquet was applied to the RIght upper arm. Patient underwent anesthesia per the anesthesia department. Patient's Right upper extremity was then prepped and draped in standard orthopedic fashion. Final timeout performed. Patient received appropriate preoperative antibiotics. Under sterile aseptic technique patient received local anesthesia over the preplanned incision sites. Esmarch was used to exsanguinate the Right upper extremity and tourniquet was insufflated to 250 mmHg. A standard mini open Right carpal tunnel incision was made. Starting distally at Lai's cardinal line in line with the fourth ray extending proximally distal to the wrist crease centered over the carpal tunnel. Sharp scalpel incision was made through skin and subcutaneous tissue. Self-retaining retractor was placed and the palmar fascia was identified. This was then split longitudinally and direct visualization of the transverse carpal ligament was then made. I then utilizing scalpel feathered through the transverse carpal ligament until I entered the floor of the transverse carpal tunnel ligament into the carpal tunnel. Next I switched to dissection scissors and completed my release of the transverse carpal ligament distally with care to protect the recurrent motor branch. I completely released into the palmar fat and until no entrapment was noted distally. Care was made to protect the superficial palmar arch during my distal dissection. Next I utilized a nasal speculum placed on top of the transverse carpal ligament and utilize this to retract the subcutaneous fat and tissue and under direct loupe magnification was able to identify the transverse carpal ligament. Next I then protected the contents of the carpal tunnel and subsequently utilizing dissection scissors under loupe magnification completely released the transverse carpal ligament proximally into the antebrachial fascia. Care was made to protect the palmar cutaneous branch by keeping my scissors curved ulnarly. Once completely released, I then placed my Saxis and had appropriate decompression of the carpal tunnel proximally as well as distally. I then inspected the contents of the carpal tunnel which showed an hourglass shape of the median nerve showing its compression. No masses were noted. Tendons appeared healthy. Wound was then thoroughly irrigated. A wet Ray-Heber was placed in the wound bed I procee ded with the trigger thumb release. Next I proceeded with the right trigger thumb release. I identified patient's MP flexion crease of the right thumb marked appropriate incision transversely across the flexion crease within Penny's lines sharp scalpel incision was made only through skin.? Once this was done I switched to Littler dissection scissors this I then subsequently spread longitudinally in the planes of the digital nerves.? Once these were identified these were protected by my fitter's assistant with Kasdan retractors.? Next I identified directly over the A1 humphrey of the right? thumb.? This was significantly thickened and identified to be the area of patient's?thumb?triggering.? I used sharp scalpel to incise the A1 humphrey and then utilized my fitter's assistant to retract the ability and under loupe magnification released the entirety of the A1 humphrey both proximally and distally up to the oblique humphrey.? This point time the tendon was then inspected and found to be healthy there was some inflammation around the tendon itself but no evidence of tearing and no need for any debridement.? The Ragnell was used to pull the tendon out of the incision and there was no mechanical?triggering I then took the patient's?thumb through range of motion no recurrent?triggering was noted.? ? Next I then proceeded with the right wrist de Quervain's release.? I marked out the first dorsal compartment a small longitudinal incision was made directly over this.? Sharp scalpel incision was made through skin only switch to Littler dissection scissors and protected the superficial branch of the radial nerve as well as neurovascular structures.? I then had direct visualization of the first dorsal compartment sharp scalpel incision I used to then simply incise the first dorsal compartment I switched dissection scissors to release this both proximally and distally to its entirety the EPB tendon did have a subsheath which was subsequently released as well.? I then subsequently used a rag nail and mobilized each tendon that verify no areas of entrapment and this completed the right wrist de Quervain's release. Tourniquet deflated. Hemostasis satisfactory with bipolar electrocautery. I then closed the incisions with interrupted nylon stitches. Xeroform 4 x 4's and a bulky soft dressing was applied. Patient was then awakened from anesthesia and taken to PACU in stable condition. Patient tolerated procedure without complications. Disposition: Patient taken to PACU in stable condition recovering well. Dressing clean dry and intact. Patient will receive appropriate discharge instructions as well as pain medication postoperatively. Patient to follow-up with me in the office in 2 weeks. They understand they may be weightbearing as tolerated to the right hand. Patient should keep incision clean dry and intact. Patient understands if any questions or concerns may contact the office.
[2023-12-14 14:10] VITALS: BP 122/79; PULSE 66; RESP 16; O2SAT 93
[2023-12-14 14:15] VITALS: BP 99/68; PULSE 67; RESP 14; TEMP 36.3; O2SAT 94
[2023-12-14 14:27] VITALS: BP 105/58; PULSE 64; RESP 17; O2SAT 96
--- NOTE | 2023-12-14 15:55 | ANE.PACU2 ---
Inpatient post-anesthesia follow up: Airway intact: Yes Vital signs: Temperature 97.4 F Pulse Rate 64 Respiratory Rate 17 Blood Pressure 105/58 Pulse Oximetry 96 Oxygen Delivery Me thod Room Air Oxygen Flow Rate Fraction of Inspir ed Oxygen Hydration adequate: Yes Nausea and vomiting: No Pain level: controlled Mental status: Baseline Additional Comments: no apparent anesthetic complications noted
== END 2023-12-14 15:19 | disposition home or self-care (01) ==
PROVIDERS: PCP Nurse Practitioner Family; Visit Provider Student in an Organized Health Care Education/Training Program
PROC: (CPT 64721; principal; 2023-12-14 12:25)
PROC: (CPT 26055; 2023-12-14 12:25)
PROC: (CPT 25000; 2023-12-14 12:25)
DX: G56.01 Carpal tunnel syndrome, right upper limb (principal); M65.311 Trigger thumb, right thumb; M65.4 Radial styloid tenosynovitis [de Quervain]; J44.9 Chronic obstructive pulmonary disease, unspecified; Z86.718 Personal history of other venous thrombosis and embolism; E78.5 Hyperlipidemia, unspecified; F17.210 Nicotine dependence, cigarettes, uncomplicated
CPT/HCPCS: 25000; 26055; 64721; J0131; J1885; J2250; J2704; J2795; J3010; J3490; J7030

== ENCOUNTER 2024-02-28 08:25 | Day surgery (SDC) | payer MEDICAID, SELFPAY ==
[2024-02-28] VITALS (11 sets, daily range): BP systolic 114–155; BP diastolic 73–91; PULSE 59–85; RESP 16–18; TEMP 36.1–36.6; O2SAT 90–97; BMI 27.8
[2024-02-28] MEDS: scopolamine 1.5 Patch 1 PATCH TRANSDERMA (08:53)
[2024-02-28] MEDS: sodium chloride 0.9% 1,000 ML 30 ML IV (08:57)
[2024-02-28] MEDS: acetaminophen 1,000 MG/100 ML PIGGYBACK 400 MG IV (08:58)
[2024-02-28] MEDS: ketorolac 30 mg/mL INJ IVP (09:00)
--- NOTE | 2024-02-28 10:23 | ANES.PREANE2 ---
Pre-Anesthetic Assessment Height/Weight: Height 1.63 m Weight 73.482 kg Temp Pulse Resp BP Pulse Ox 97.0 F L 63 16 155/86 96 02/28/24 08:41 02/28/24 08:41 02/28/24 08:41 02/28/24 08:41 02/28/24 08:41 Operation Date: 02/28/24 11:45 Proposed Procedures p Carpal Tunnel Release(Left) - Krishna Lisa, DO s Cubital Tunnel Release(Left) - Krishna [place], DO s Ulnar Nerve Transposition(Left) - Krishna Lisa, DO s left ring trigger finger release and left trigger thumb release(Left) - Krishna [place], DO s Dequervain Release(Left) - Krishna Lisa, DO Familial anesthetic complications: none Was Beta Vinny taken within 24 hours: N/A Was Clonidine taken within 24 hours: N/A Last intake: Intake Last Liquid Date 02/27/24 Last Liquid Time 22:00 Last Solid Date 02/27/24 Last Solid Time 19:30 Social Alcohol (6 pack a night) and Tobacco Exam alert, oriented x 3, clear to auscultation bilaterally and regular rate & rhythm Airway Mallampati: Class II Dentition: chipped Pulmonary Chronic Obstructive Pulmonary Disease CV/HEM Hypertension Anesthetic Plan ASA status: 2 Anesthesia: General and Regional (specify below) Risk of > 500 ml blood loss (7ml/kg in children): No Medications/Allergies Home Medications Medication Instructions Recorded Confirmed Last Taken Type epinephrine 0.3 mg/0.3 mL 0.3 mg (0.3 mL) IM Q4H PRN 01/29/24 02/27/24 Unknown Rx injection, auto-injector (EpiPen anaphylaxis #2 ea 2-Jose) hydroxyzine HCl 25 mg tablet 25 mg PO TID PRN itching #90 tabs 01/29/24 02/27/24 Unknown Rx loratadine 10 mg tablet (Claritin) 10 mg PO DAILY 90 days #90 tabs 01/29/24 02/27/24 Unknown Rx albuterol 4 puff inhalation PRN 02/27/24 02/28/24 02/24/24 History hydrocodone 5 mg-acetaminophen 325 1 tab PO Q6H PRN pain 5 days #20 02/28/24 Unknown Rx mg tablet tabs ondansetron 4 mg disintegrating 4 mg PO Q8H PRN nausea and 02/28/24 Unknown Rx tablet vomiting 3 days #9 tabs Allergies Allergy/AdvReac Type Severity Reaction Status Date / Time azithromycin Allergy REY Verified 02/20/24 14:19 CECI ceftriaxone [From Rocephin] Allergy REY Verified 02/20/24 14:19 CECI ciprofloxacin [From Cipro] Allergy REY Verified 02/20/24 14:19 CECI latex Allergy ALGY-Redness Verified 02/20/24 14:19 of Skin levofloxacin [From Levaquin] Allergy REY Verified 02/20/24 14:19 CECI morphine Allergy Unknown Verified 02/20/24 14:19 nitrofurantoin Allergy REY Verified 02/20/24 14:19 [From Macrobid] CECI prednisone Allergy steroid Verified 02/20/24 14:19 psychosis Sulfa (Sulfonamide Allergy REY Verified 02/20/24 14:19 Antibiotics) CECI Current Medications Generic Name Dose Route Start Last Admin Trade Name Freq PRN Reason Stop Dose Admin Sodium Chloride 1,000 mls @ 30 mls/hr 02/28/24 08:45 02/28/24 08:57 Sodium Chloride 0.9% IV 02/29/24 08:44 30 mls/hr .Q24H ТАТЬЯНА Administration PFSH Anesthesia Medical History Arthritis Hyperlipidemia Family History Father CAD (coronary artery disease) Diabetes Family history of premature coronary artery disease Hyperlipidemia Hypertension Lung disease Stroke Mother Cancer Hyperlipidemia Hypertension Grandfather Cancer Grandmother Clotting disorder Denies family history of Dementia Psychiatric illness Chronic kidney disease (CKD) Suicide Anesthesia complication Bleeding disorder Social History Smoking and tobacco/nicotine status: current every day tobacco/nicotine user cigarettes Packs smoked per day: 1.5 Years cigarettes smoked: 30 Alcohol intake: current Alcohol intake frequency: 3 or more drinks per day Alcohol type: beer Substance/Drug Use: never Data Anesthesia Cardiac Studies: No Data to Display
--- NOTE | 2024-02-28 10:24 | ANES.PROC ---
Anesthesia Procedures Procedure/Date: 02/28/24 Nerve Block ^: Nerve Block 1: Main Anesthesia: general anesthesia Time Out Performed: Yes Consent: requested by attending/covering physician, from patient, from other, risks and benefits reviewed and patient agrees to proceed Nerve block location: supraclavicular (L) Anesthesia monitors applied: pulse oximetry, EKG, BP cuff and oxygen Nerve block position: semi sitting Anesthetic Used: ropivicaine 0.5% (25 ml) and with decadron (4 mg) Ultrasound used to: recognize landmarks, visualize and ID brachial plexus and in supraclavicular region Nerve Stimulator Used?: No Interscalene/Femoral BLK: 4 stimuplex 21 g needle used for position and inplane approach, visualize local anesthetic spread and no vascular puncture identified Injection: neg aspiration of heme Patient Tolerated Procedure: well Complications: none
--- NOTE | 2024-02-28 10:33 | SUR.PREOP ---
Addendum entered by Venecia Pham 02/28/24 14:42: 1020 left supraclavicular block instead of interscale block Original Note: 1020 left interscale block done with 25 cc of ropivacaine per Dr. Underwood
--- NOTE | 2024-02-28 11:40 | W.PM.OPSUD ---
Surgery/Procedure H&P Update DATE OF PROCEDURE: February 28, 2024 DATE H&P PERFORMED: 02/20/24 H&P UPDATE INFORMATION: I have reviewed H&P completed within last 30 days, I have examined patient prior to procedure and No changes to prior documentation PREOP DIAGNOSIS: Left carpal tunnel syndrome, cubital tunnel syndrome, ring & thumb trigger PRIMARY INDICATION FOR PROCEDURE: Left carpal tunnel syndrome, left cubital tunnel syndrome, left ring finger trigger, left thumb trigger, left wrist de Quervain's disease PLANNED PROCEDURE: Operation Date: 02/28/24 11:45 Proposed Procedures p Carpal Tunnel Release(Left) - Krishna [place], DO s Cubital Tunnel Release(Left) - Krishna [place], DO s Ulnar Nerve Transposition(Left) - Krishna [place], DO s left ring trigger finger release and left trigger thumb release(Left) - Krishna Lisa, DO s Dequervain Release(Left) - Krishna [place], DO
[2024-02-28] MEDS: clindamycin 600 MG/50 ML PREMIX 100 MG IV (11:58)
[2024-02-28] MEDS: ROPivacaine 0.5% SDV 30 mL 150 MG INJECTION (12:49)
[2024-02-28] MEDS: lidocaine-epi 1% PF 1:200,000 30 mL SDV INJECTION (12:49)
--- NOTE | 2024-02-28 13:31 | W.PM.BPON ---
Date of Procedure: 02/28/2024 Surgeon: Krishna Gonzalez DO Transmitter Supervisor(s): None Procedure(s) performed: Left carpal tunnel release Left cubital tunnel release (ulnar nerve decompression at the elbow) Left ring finger trigger release Left thumb trigger release Left wrist de Quervain's release Findings of the procedure(s): Patient was found to have left carpal tunnel syndrome left cubital tunnel syndrome left ring finger trigger left thumb trigger and left wrist de Quervain's underwent procedure as planned without issues or complications. no transposition was performed. Estimated blood loss: 15 mL Specimen(s) removed: None Post-operative diagnosis: Left carpal tunnel syndrome left cubital tunnel syndrome left ring finger trigger left thumb trigger left wrist de Quervain's disease
--- NOTE | 2024-02-28 13:34 | PM.OP ---
Operative Report Date of procedure: February 28, 2024 Surgeon: Krishna Gonzalez DO Procedure: Preoperative diagnosis: Left carpal tunnel syndrome, left cubital tunnel syndrome, left ring finger trigger, left thumb trigger, left wrist de Quervain's disease Postop Diagnosis: Same Procedure done: Left carpal tunnel release Left cubital tunnel release (ulnar nerve decompression at the elbow) Left ring finger trigger release Left thumb trigger release Left wrist de Quervain's release Surgeon: Krishna Gonzalez DO Estimated blood loss: 15mL Tourniquet? 39 minutes IV fluids: 1100 mL Complications: None Findings: See operative report narrative Condition: stable Disposition: same day Brief History: Patient's been seen and worked up in the outpatient setting and findings consistent with preoperative diagnosis.? Patient has Left carpal tunnel syndrome as well as Left?cubital tunnel syndrome which has been worked up in the outpatient setting has physical exam findings consistent with this as well as confirmatory nerve conduction/EMG nerve conduction study consistent with diagnosis.? Patient also has findings consistent with left wrist de Quervain's disease left ring finger trigger and left thumb trigger. At this point in time she like to have it all addressed at 1 time. Patient's failed conservative treatment.? As result through shared decision making agreed to proceed with?left carpal tunnel release, left cubital tunnel release with possible nerve transposition, left wrist de Quervain's release, left ring finger trigger release, left thumb trigger release. we talked about treatment options as far as nonoperative and operative intervention.? Understands risk benefits complication alternatives surgical nonsurgical treatment options.? Understanding risks patient agrees to proceed with surgical intervention. All questions have been answered at this time consent reviewed and signed with patient. Procedure: Patient seen evaluate in the preoperative holding area.? Consent was reviewed and signed with patient.? Correct extremity marked.? Patient seen evaluated by anesthesia department once cleared for surgery was then taken back to the operative suite placed in supine position all bony prominences well-padded patient properly secured to bed.? Patient received preoperative block to the operative extremity. By anesthesia. Left upper extremity placed onto armboard.? Nonsterile tourniquet applied Left upper arm.? Patient then underwent anesthesia per the anesthesia department.? Patient's Left upper extremity was then prepped and draped in standard orthopedic fashion.? Final timeout performed.? Patient received appropriate preoperative antibiotics. Esmarch was used exsanguinate the Left upper extremity.? Tourniquet was insufflated to 250 mmHg. I started with the carpal tunnel release first.? I made a standard open carpal tunnel release starting with the distal most extent in the palm at the Lai's cardinal line and the incision line was made in line with the fourth ray and ended just distal to the wrist crease.? Sharp scalpel incision was made through skin and subcutaneous tissue I then utilizing self retainer then began to dissect with dissection scissors split longitudinally the palmar fascia.? Next I then utilizing my high school assistant football coach Josi retractors subsequently utilizing scalpel feathered through the palmaris brevis as well as through the transverse carpal ligament distally.? Once I encountered the floor of the transverse carpal ligament and entered into the carpal tunnel I then switched to dissection scissors.? Carefully released the distal extent of the transverse carpal ligament to the palmar fat.? Care was to protect the recurrent branch and not injured this during this part of the case.? Next I then placed a Hartman underneath the transverse carpal ligament proximally to protect the nerve in the carpal tunnel contents.? And then I subsequently under loupe magnification utilize my dissection scissors to release the transverse carpal ligament into the antebrachial fascia under direct visualization with care to keep my scissors with a curved ulnarly away from the palmar cutaneous branch.? The transverse carpal was then completely decompressed proximally and a Hartman was then placed both distally and proximally throughout the carpal tunnel and had complete decompression of the nerve.? The nerve did appear to have hourglass shape as it went through the carpal tunnel.? With significant irritation noted around the nerve.? No masses were noted within the contents of the carpal tunnel.? This completed the carpal tunnel release and then I subsequently irrigated the wound bed and placed a wet Ray-Heber into the incision for later closure. Next I proceeded with the trigger finger releases. Once appropriately anesthetized a standard oblique incision was made centering over the A1 humphrey following patient's flexor crease to the left ring finger.? Sharp scalpel incision was made only through skin and then switched to Littler dissection scissors and spread longitudinally directly over the flexor tendon sheath.? I then mobilized both radially and ulnarly and Kasdan retractors were used and placed by my high school assistant football coach to protect neurovascular bundle.? Next I visualized the A1 humphrey and this was incised with a scalpel.? I then switched to dissection scissors and released the A1 humphrey both proximally as well as distally to its entirety.? Significant tendon sheath fluid was noted consistent with inflammation.? Mild fraying of the flexor tendons noted but no tear.? At this point I utilized a rag nail and pulled the tendons FDS and FDP out of the incision and no?triggering was noted.? Also the fingers taken through range of motion no mechanical triggering noted. This point thorough irrigation was performed.? Wet Ray-Heber was then placed inside the wound for the rest of the procedure Next I proceeded with the left thumb trigger release. I identified patient's MP flexion crease to the left thumb. Marked appropriate incision transversely across the flexion crease within Penny's lines sharp scalpel incision was made only through skin.? Once this was done I switched to Littler dissection scissors this I then subsequently spread longitudinally in the planes of the digital nerves.? Once these were identified these were protected by my high school assistant football coach with Kasdan retractors.? Next I identified directly over the A1 humphrey of the left thumb.? This was significantly thickened and identified to be the area of patient's thumb?triggering.? I used sharp scalpel to incise the A1 humphrey and then utilized my high school assistant football coach to retract the ability and under loupe magnification released the entirety of the A1 humphrey both proximally and distally up to the oblique humphrey.? This point time the tendon was then inspected and found to be healthy there was some inflammation around the tendon itself but no evidence of tearing and no need for any debridement.? The Ragnell was used to pull the tendon out of the incision and there was no mechanical?triggering I then took the patient's thumb through range of motion no recurrent?triggering was noted.? ?Thoroughly irrigation was then performed and a wet Ray-Heber was placed inside the wound during the rest of the procedure Next I proceeded with the left wrist de Quervain's release ? I marked out the first dorsal compartment a small longitudinal incision was made directly over this.? Sharp scalpel incision was made through skin only switch to Littler dissection scissors and protected the superficial branch of the radial nerve as well as neurovascular structures.? I then had direct visualization of the first dorsal compartment sharp scalpel incision I used to then simply incise the first dorsal compartment I switched dissection scissors to release this both proximally and distally to its entirety the EPB tendon did have a subsheath which was subsequently released as well.? I then subsequently used a rag nail and mobilized each tendon that verify no areas of entrapment and this completed the left wrist de Quervain's release. Wound was then thoroughly irrigated wet Ray-Heber was placed within the wound for the rest the procedure. Next marked out the landmarks of the Left elbow of the medial epicondyle and olecranon and made a curvilinear incision following the course of the ulnar nerve at the medial aspect of the elbow.? Sharp scalpel incision was made through skin and subcutaneous tissue.? Next I switched to Littler dissection scissors and spread in plane of the medial antebrachial cutaneous nerve branching which was protected throughout this part of the dissection.? Then I directly came down over the fascia and identified the 2 heads of the FCU fascia and split this Left in the middle and subsequently identified my ulnar nerve distally.? This was then completely released distally under direct visualization and loupe magnification.? Once the nerve was then identified I then subsequently tracked this proximally and released this through Donovan's ligament as well as complete decompression of the nerve proximally all the way past the intermuscular septum.? The nerve was completely released and decompressed both proximally and distally.? Ulnar nerve neurolysis performed and completed both proximally and distally with dissection scissors.? I then took the elbow through range of motion and there was no instability or subluxating of the ulnar nerve.? This completed?cubital tunnel release.? ?Next the wound bed was thoroughly irrigated.? Tourniquet was deflated.? Hemostasis was satisfactory at the at all surgical incision sites which is maintained with bipolar electrocautery. At this point time I sequentially closed?cubital tunnel site with 3-0 Vicryl suture in a running horizontal mattress nylon stitch.? ? The carpal tunnel release and trigger release and de Quervain's release surgeries were closed in standard interrupted mattress fashion. ? Dressing was Xeroform 4 x 4's ABD Curlex soft roll and an Silverio wrap has a bulky soft dressing. Patient was then awakened from anesthesia and taken to PACU in stable condition. Disposition: Patient taken to PACU in stable condition recovering well.? Patient will receive appropriate discharge instructions as well as pain medication postoperatively.? We will follow-up with orthopedics in the office in 2 weeks.? Patient understands agrees with current plan.? All questions answered.? He understands if any questions or concerns and contact the office for follow-up appointment..
[2024-02-28] MEDS: HYDROcodone-acetaminophen 5-325 mg Tablet 1 TAB PO (14:37)
--- NOTE | 2024-02-28 14:40 | SUR.PHASEII ---
1430 pt states pain to left arm and norco 5/325 given, a 5 on numeric pain scale,pt c/o numbness to left arm from suprclavicular block,boyfrlorena Russo at bedside
--- NOTE | 2024-02-28 15:25 | ANE.PACU2 ---
Inpatient post-anesthesia follow up: Airway intact: Yes Vital signs: Temperature 98 F Pulse Rate 59 Respiratory Rate 16 Blood Pressure 115/74 Pulse Oximetry 94 Oxygen Delivery Me thod Room Air Oxygen Flow Rate 6 Fraction of Inspir ed Oxygen Hydration adequate: Yes Nausea and vomiting: No Pain level: 1 Mental status: Baseline
--- NOTE | 2024-02-28 16:05 | SUR.PHASEII ---
1520 pain rx effective and pt states she is ready to go home.
== END 2024-02-28 15:25 | disposition home or self-care (01) ==
PROVIDERS: PCP Nurse Practitioner Family; Visit Provider Student in an Organized Health Care Education/Training Program
PROC: (CPT 64721; principal; 2024-02-28 11:35)
PROC: (CPT 64718; 2024-02-28 11:35)
PROC: (CPT 25000; 2024-02-28 11:35)
PROC: (CPT 26055; 2024-02-28 11:35)
PROC: (CPT 25000; 2024-02-28 11:35)
DX: G56.02 Carpal tunnel syndrome, left upper limb (principal); G56.22 Lesion of ulnar nerve, left upper limb; M65.342 Trigger finger, left ring finger; M65.4 Radial styloid tenosynovitis [de Quervain]; J44.9 Chronic obstructive pulmonary disease, unspecified; I10 Essential (primary) hypertension; M19.90 Unspecified osteoarthritis, unspecified site; E78.5 Hyperlipidemia, unspecified; F17.210 Nicotine dependence, cigarettes, uncomplicated
CPT/HCPCS: 25000; 26055 ×2; 64718; 64721; J0131; J1100; J1885; J2405; J2704; J2795; J3010; J3490; J7030

== ENCOUNTER 2024-05-27 06:56 | Day surgery (SDC) | payer MEDICAID, SELFPAY ==
[2024-05-27] VITALS (10 sets, daily range): BP systolic 106–148; BP diastolic 57–92; PULSE 66–85; RESP 14–18; TEMP 36.2–36.9; O2SAT 95–98; BMI 28.1
--- NOTE | 2024-05-27 07:12 | W.PM.OPSFHP ---
Same Day Surgery H&P Indication for Procedure/HPI DATE OF PROCEDURE: May 27, 2024 CHIEF COMPLAINT/INDICATIONFOR SURGICAL PROCEDURE: right cubital tunnel syndrome PREOP DIAGNOSIS: Right cubital tunnel syndrome PLANNED PROCEDURE: Operation Date: 05/27/24 08:30 Proposed Procedures p Cubital Tunnel Release(Right) - Krishna Gonzalez DO s Ulnar Nerve Transposition(Right) - Krishna Gonzalez DO Medications/Allergies* Home Medications Medication Instructions Recorded Confirmed Type albuterol 4 puff inhalation PRN 02/27/24 05/23/24 History Allergies/Adverse Reactions Allergy/AdvReac Type Severity Reaction Status Date / Time azithromycin Allergy REY Verified 05/27/24 07:12 CECI ceftriaxone [From Rocephin] Allergy REY Verified 05/27/24 07:12 CECI ciprofloxacin [From Cipro] Allergy REY Verified 05/27/24 07:12 CECI latex Allergy ALGY-Redness Verified 05/27/24 07:12 of Skin levofloxacin [From Levaquin] Allergy REY Verified 05/27/24 07:12 CECI morphine Allergy Unknown Verified 05/27/24 07:12 nitrofurantoin Allergy REY Verified 05/27/24 07:12 [From Macrobid] CECI prednisone Allergy steroid Verified 05/27/24 07:12 psychosis Sulfa (Sulfonamide Allergy REY Verified 05/27/24 07:12 Antibiotics) CECI Pertinent History/Comorbid Conditions* Medical History (Updated 04/25/24 @ 14:15 by SOPHIA Moise) Arthritis Hyperlipidemia Family History (Updated 07/25/22 @ 14:51 by Darcy Murphy) Diabetes Father CAD (coronary artery disease) Father Clotting disorder Grandmother Hyperlipidemia Father Mother Family history of premature coronary artery disease Father Lung disease Father Cancer Mother Grandfather Hypertension Father Mother Stroke Father Denies family history of Dementia Psychiatric illness Chronic kidney disease (CKD) Suicide Anesthesia complication Bleeding disorder Social History Smoking and tobacco/nicotine status: current every day tobacco/nicotine user cigarettes Packs smoked per day: 1.5 Years cigarettes smoked: 30 Alcohol intake: current Alcohol intake frequency: 3 or more drinks per day Alcohol type: beer Substance/Drug Use: never Pertinent Exam Findings alert, oriented x 3, operative site marked and procedure specific exam findings Please refer to detailed orthopedic examination on 04/25/2024: Right arm Hand exam-negative Tinel's and negative Phalen's test. no thenar atrophy and thenar muscle weakness. Full range of motion in fingers and wrist and fingers are warm and well-perfused with normal cap refill under 2 seconds. Radial pulse 2+, intrinsic muscle weakness noted. Elbow exam-Positive Tinel's test and Positive elbow flexion test. Recommendations Surgery/Procedure today Other Plans: Plan to proceed to the OR today for right cubital tunnel release with possible nerve transposition. Patient understands the ins and outs procedure risk benefits complication alternatives surgery and through shared decision making elected proceed with surgical intervention. All questions answered at this time. Coding Level of Care Code Acute Code for g Fwd
[2024-05-27] MEDS: sodium chloride 0.9% 1,000 ML 30 ML IV (07:24)
[2024-05-27] MEDS: acetaminophen 1,000 MG/100 ML PIGGYBACK 400 MG IV (07:24)
[2024-05-27] MEDS: scopolamine 1.5 Patch 1 PATCH TRANSDERMA (07:25)
[2024-05-27] MEDS: ketorolac 30 mg/mL INJ IVP (07:25)
--- NOTE | 2024-05-27 07:44 | ANES.PREANE2 ---
Pre-Anesthetic Assessment Height/Weight: Height 5 ft 4 in Weight 164 lb Temp Pulse Resp BP Pulse Ox O2 Del Method 97.1 F L 80 18 148/87 98 Room Air 05/27/24 07:16 05/27/24 07:16 05/27/24 07:16 05/27/24 07:16 05/27/24 07:16 05/27/24 07:18 Preop Diagnosis: Right cubital tunnel syndrome Operation Date: 05/27/24 08:30 Proposed Procedures p Cubital Tunnel Release(Right) - Krishna Napa, DO s Ulnar Nerve Transposition(Right) - Krishna Napa, DO Was Beta Vinny taken within 24 hours: N/A Was Clonidine taken within 24 hours: N/A Last intake: Intake Last Liquid Date 05/26/24 Last Liquid Time 21:00 Last Solid Date 05/26/24 Last Solid Time 21:00 Social Tobacco and No alcohol Exam alert, oriented x 3 and regular rate & rhythm Decreased breath sounds bilaterally Airway Submandibular: within normal limits Cervical ROM: within normal limits Mallampati: Class II Dentition: full Anesthetic Plan ASA status: 2 Anesthesia: General and Regional (specify below) Other: No prior issues with anesthesia, similar procedure a few months ago without issues NPO since yesterday Current smoker, COPD. No home O2 use GERD, controlled with Tums Denies any cardiac issues. Preop BP 148/87 Prior EKG showing sinus rhythm METs greater than 4 Plan for general anesthesia with preop nerve block Medications/Allergies Home Medications Medication Instructions Recorded Confirmed Last Taken Type epinephrine 0.3 mg/0.3 mL 0.3 mg (0.3 mL) IM Q4H PRN 01/29/24 05/23/24 Unknown Rx injection, auto-injector (EpiPen anaphylaxis #2 ea 2-Jose) hydroxyzine HCl 25 mg tablet 25 mg PO TID PRN itching #90 tabs 01/29/24 05/23/24 Unknown Rx loratadine 10 mg tablet (Claritin) 10 mg PO DAILY 90 days #90 tabs 01/29/24 05/23/24 05/23/24 Rx albuterol 4 puff inhalation PRN 02/27/24 05/27/24 05/22/24 History hydrocodone 7.5 mg-acetaminophen 1 tab PO Q6H PRN pain 5 days #20 03/14/24 05/27/24 Unknown Rx 325 mg tablet tabs Allergies Allergy/AdvReac Type Severity Reaction Status Date / Time azithromycin Allergy REY Verified 05/27/24 07:12 CECI ceftriaxone [From Rocephin] Allergy REY Verified 05/27/24 07:12 CECI ciprofloxacin [From Cipro] Allergy REY Verified 05/27/24 07:12 CECI latex Allergy ALGY-Redness Verified 05/27/24 07:12 of Skin levofloxacin [From Levaquin] Allergy REY Verified 05/27/24 07:12 CECI morphine Allergy Unknown Verified 05/27/24 07:12 nitrofurantoin Allergy REY Verified 05/27/24 07:12 [From Macrobid] CECI prednisone Allergy steroid Verified 05/27/24 07:12 psychosis Sulfa (Sulfonamide Allergy REY Verified 05/27/24 07:12 Antibiotics) CECI Current Medications Generic Name Dose Route Start Last Admin Trade Name Freq PRN Reason Stop Dose Admin Sodium Chloride 1,000 mls @ 30 mls/hr 05/27/24 07:15 05/27/24 07:24 Sodium Chloride 0.9% IV 05/28/24 07:14 30 mls/hr .Q24H [id number] Administration PFSH Anesthesia Medical History Arthritis Hyperlipidemia Family History Father CAD (coronary artery disease) Diabetes Family history of premature coronary artery disease Hyperlipidemia Hypertension Lung disease Stroke Mother Cancer Hyperlipidemia Hypertension Grandfather Cancer Grandmother Clotting disorder Denies family history of Dementia Psychiatric illness Chronic kidney disease (CKD) Suicide Anesthesia complication Bleeding disorder Social History Smoking and tobacco/nicotine status: current every day tobacco/nicotine user cigarettes Packs smoked per day: 1.5 Years cigarettes smoked: 30 Alcohol intake: current Alcohol intake frequency: 3 or more drinks per day Alcohol type: beer Substance/Drug Use: never Data Anesthesia Cardiac Studies: No Data to Display
[2024-05-27] MEDS: clindamycin 600 MG/50 ML PREMIX 60 MG IV (08:16)
--- NOTE | 2024-05-27 08:23 | ANES.PROC ---
Anesthesia Procedures Procedure/Date: 05/27/24 Nerve Block ^: Nerve Block 1: Main Anesthesia: other (100 mcg fentanyl and 2 mg Versed) Time Out Performed: Yes Consent: requested by attending/covering physician and from patient Nerve block location: supraclavicular Anesthesia monitors applied: pulse oximetry, EKG, BP cuff and oxygen Nerve block position: supine Anesthetic Used: ropivicaine 0.5% Amount of anesthesia used (mL): 30 Ultrasound used to: recognize landmarks Interscalene/Femoral BLK: other needle (pjunk 4inch) Injection: neg aspiration of heme Patient Tolerated Procedure: well Complications: none
--- NOTE | 2024-05-27 08:59 | W.PM.BPON ---
Date of Procedure: 05/27/2024 Surgeon: Krishna Gonzalez DO [employer] Metallurgist(s): None Procedure(s) performed: Right cubital tunnel release Findings of the procedure(s): Patient found to have right cubital tunnel syndrome underwent procedure as planned without issues or complications Estimated blood loss: 2 mL Specimen(s) removed: None Post-operative diagnosis: Right cubital tunnel syndrome
--- NOTE | 2024-05-27 09:00 | PM.OP ---
Operative Report Date of procedure: May 27, 2024 Surgeon: Krishna Gonzalez DO Procedure: Preoperative diagnosis: Right?cubital?tunnel syndrome Post-op diagnosis:? 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 Nerve study findings consistent with this as well as physical exam findings. We had detailed discussion in office about continued nonoperative intervention versus operative intervention.? Patient understands the risk benefits complications alternatives to surgical and nonsurgical treatment options.? Patient understands the risks include but not limited to make it better, make it worse, infection, permanent injury to nerve, decreased function and sensation to the hand with persistent weakness.? Given these risks patient understands and agrees to proceed with current plan.? Patient elects to proceed with a right?cubital?tunnel release and possible ulnar nerve transposition. all questions answered. Procedure: Patient was seen and evaluated in the preoperative holding area.? The consent that was filled out in office was reviewed with patient and confirmed to be appropriate for right ulnar nerve?cubital?tunnel release and possible ulnar nerve transposition.? Correct extremity was then marked.? Patient was seen evaluated by the preoperative team as well as anesthesia department.? Once cleared for surgery patient was then taken to the operative suite and transported onto the operative table all bony prominences were well-padded and patient was secured to the table.? Right upper extremity was placed on an armboard.? Patient then underwent anesthesia per the anesthesia department. The right upper extremity tourniquet was applied. Patient's right upper extremity was then prepped and draped in standard orthopedic fashion.? This point a final timeout was performed. Patient received appropriate preop antibiotics. Esmarch tourniquet was used to exsanguinate the operative extremity and was insufflated to 250 mmHg.? Standard curvilinear incision was made centering over the ulnar nerve between the medial epicondyle and olecranon process.? Sharp scalpel excision through skin and subcutaneous tissue was performed.? Once I encountered subcutaneous tissue I then utilized dissection scissors to spread in the path of the [facility] and care was made to protect any nerve branches throughout this case.? I then utilized a scalpel to complete my dissection directly on over to the flexor pronator mass and elevated this fat tissue directly off of the fascia.? I started my dissection of the ulnar nerve the nerve proximally.? Once identified I then utilized Littler dissection scissors and decompress the nerve completely and proximally and utilized blunt dissection to make sure there was no entrapment proximally.? Once decompressed proximally I then traced the nerve distal through Donovan's ligament and as it entered the FCU fascia aponeurosis and completed by decompression and ulnar nerve neurolysis distally.? The nerve was completely released in situ no areas of entrapment I was able to place my finger distally and proximally with no areas entrapment along the nerve.? At this point in time by in situ release was completed I then subsequently took the elbow through range of motion and and there was no evidence of ulnar nerve subluxation as result no transposition needed.?? ?Wound bed was then thoroughly irrigated.? Tourniquet was deflated.? Maintained exact hemostasis with bipolar electrocautery.? The skin was reapproximated with interrupted Vicryl subcutaneous suture 3-0.? I next utilized a running horizontal mattress stitch with 3-0 nylon.? Extremity was then cleaned and the incision was then covered with Xeroform 4 x 4's ABD Curlex and soft roll and a Silverio wrap was then applied with an Silverio wrap.? Patient was then awakened from anesthesia and taken to PACU in stable condition. Disposition: Patient taken to PACU in stable condition.? Patient given appropriate discharge instructions as well as pain medication.? ?Patient will see orthopedics in office in 2 weeks.? pt understands? if they has any questions they can contact the office.
--- NOTE | 2024-05-27 09:06 | P.PCN_ITS ---
PACU note Narrative: Patient is a 58-year-old female just underwent right cubital tunnel release. Patient transferred to PACU in stable condition. Pain is well controlled. Dressing on hand is dry and in place. Patient's fingers are warm and well- perfused. Normal cap refill under 2 seconds. Unable to perform any further assessment of motor sensation due to residual block. Exam: awake Disposition: discharged
== END 2024-05-27 10:28 | disposition home or self-care (01) ==
PROVIDERS: Visit Provider Student in an Organized Health Care Education/Training Program
PROC: (CPT 64718; principal; 2024-05-27 08:20)
PROC: (CPT 64718; 2024-05-27 08:20)
DX: G56.21 Lesion of ulnar nerve, right upper limb (principal); J44.9 Chronic obstructive pulmonary disease, unspecified; Z99.81 Dependence on supplemental oxygen; K21.9 Gastro-esophageal reflux disease without esophagitis; M19.90 Unspecified osteoarthritis, unspecified site; E78.5 Hyperlipidemia, unspecified; F17.210 Nicotine dependence, cigarettes, uncomplicated
CPT/HCPCS: 64718; J0131; J1100; J1885; J2405; J2704; J2795; J3010; J3490; J7030

== ENCOUNTER 2024-07-25 10:02 | Outpatient (CLI) | payer OTHER, SELFPAY ==
--- NOTE | 2024-07-25 10:12 | XR_ITS ---
WS: [email or web address] Exam: XR lumbar spine 2-3V* [id number] Date/Time of Exam: 07/25/2024 10:20 AM Reason For Exam: LOW BACK PAIN No fracture noted. Advanced degenerative disc change at all levels with anterior and posterior spondylosis. Slight dextroscoliosis. Facet arthropathy at all levels. There is straightening. XR/XR lumbar spine 2-3V* [id number] IMPRESSION: 1. Advanced degenerative changes as noted above. No fracture or malalignment. 2. Mild dextroscoliosis. Straightening.
--- NOTE | 2024-07-25 10:12 | XR_ITS ---
WS: [email or web address] Exam: XR hip RT 2-3V wo/w pel* [id number] Date/Time of Exam: 07/25/2024 10:20 AM Reason For Exam: RIGHT HIP PAIN No acute fracture. The joint compartment is maintained. Degenerative change and osteophyte formation along the acetabulum. Normal soft tissues. IMPRESSION1. Degenerative change and osteophyte formation along the acetabulum. No other significant finding.
== END 2024-07-25 10:03 | disposition home or self-care (01) ==
LOC: RAD 10:07
DX: Z02.71 Encounter for disability determination (principal); M47.896 Other spondylosis, lumbar region; M41.86 Other forms of scoliosis, lumbar region; M16.11 Unilateral primary osteoarthritis, right hip; M25.751 Osteophyte, right hip
CPT/HCPCS: 72100; 73502

== ENCOUNTER → 2024-11-20 11:12 | Outpatient (BNVA) | payer MEDICAID, SELFPAY | PROVIDERS: Visit Provider Nurse Practitioner Family | DX: E78.5 Hyperlipidemia, unspecified (principal) | CPT/HCPCS: 80053; 80061; 84443; 85025 ==

== ENCOUNTER → 2025-02-18 10:18 | Outpatient (BNVA) | payer MEDICAID, SELFPAY | PROVIDERS: PCP Nurse Practitioner Family; Visit Provider Nurse Practitioner Family | DX: M25.562 Pain in left knee (principal); E78.5 Hyperlipidemia, unspecified | CPT/HCPCS: 73562; 80053; 80061; 85025 ==

== ENCOUNTER 2025-02-19 10:29 | Outpatient (CLI) | payer MEDICAID, SELFPAY ==
--- NOTE | 2025-02-19 10:20 | MM_ITS ---
WS: [id number] BILATERAL SCREENING DIGITAL TOMOSYNTHESIS MAMMOGRAM WITH CAD HISTORY: SCREENING COMPARISON: None available. Bilateral CC and MLO views with tomosynthesis and synthetic mammography submitted. Computer aided detection analyzed. Breast composition: There are scattered areas of fibroglandular density. No suspicious masses, microcalcifications or architectural distortion. Benign calcifications. No persistent asymmetries. MM/MM scr BI tomosynthesis [id number] IMPRESSION: BI-RADS: 2 - Benign. FOLLOW UP: 1 Year Follow-up
== END 2025-02-19 10:30 | disposition home or self-care (01) ==
LOC: MOBLMAM 10:35
PROVIDERS: PCP Nurse Practitioner Family; Visit Provider Nurse Practitioner Family
DX: Z12.31 Encounter for screening mammogram for malignant neoplasm of breast (principal)
CPT/HCPCS: 77063; 77067

== ENCOUNTER → 2025-03-18 10:18 | Outpatient (BNVA) | payer MEDICAID, SELFPAY | PROVIDERS: PCP Nurse Practitioner Family; Referring Provider Nurse Practitioner Family; Visit Provider Internal Medicine | DX: J44.9 Chronic obstructive pulmonary disease, unspecified (principal) | CPT/HCPCS: 36415; 85025 ==

== ENCOUNTER 2025-03-26 13:56 | Outpatient (CLI) | payer MEDICAID, SELFPAY ==
--- NOTE | 2025-03-26 14:30 | CTR_ITS ---
PROCEDURE INFORMATION: Exam: CT Chest With Contrast; Diagnostic Exam date and time: 03/26/2025 2:30 PM Age: 59 years old Clinical indication: Condition or disease; Lung condition and disease; Pulmonary nodule, solitary; Additional info: Lung nodule right upper lobe TECHNIQUE: Imaging protocol: Diagnostic computed tomography of the chest with contrast. Radiation optimization: All CT scans at this facility use at least one of these dose optimization techniques: automated exposure control; mA and/or kV adjustment per patient size (includes targeted exams where dose is matched to clinical indication); or iterative reconstruction. Contrast material: OMNI 350; Contrast volume: 100 ml; Contrast route: INTRAVENOUS (IV); COMPARISON: CT chest w con* [id number] 10/05/2023 3:35 PM RADIATION DOSE METRICS: Total DLP (mGy-cm): 343.45 FINDINGS: Lungs: Stable 7 mm nodule in the right upper lobe (series 8; image 49). Scarring in the left lung base. Pleural spaces: No pleural effusion or pneumothorax noted. Heart: There is no cardiomegaly. There is no pericardial effusion. Lymph nodes: No pathologically enlarged lymph nodes (by short axis size criteria). Vasculature: There is no aortic dissection. There is no aortic aneurysm. Patent origin of the celiac, SMA and right renal arteries. Bones/joints: No acute osseous abnormality. Soft tissues: Unremarkable. CT/CT chest w con* [id number] IMPRESSION: Stable 7 mm right upper lobe nodule. Continue follow-up recommended aeration. For patients at low risk (minimal or absent history of smoking and of other known risk factors), recommend CT Chest at 6-12 months, then consider CT Chest at 18-24 months. For patients at high risk (history of smoking or of other known risk factors), recommend CT Chest at 6-12 months, then CT Chest at 18-24 months. (Reference: Daniele). REFERENCES: Daniele Boo et al. Guidelines for Management of Incidental Pulmonary Nodules Detected on CT Images: From the Fleischner Society 2017. Radiology. 2017;284(1):228-243.
[2025-03-26] MEDS: iohexol 350 mg/mL 500 mL Btl (per mL) IV (14:39)
== END 2025-03-26 13:57 | disposition home or self-care (01) ==
LOC: RAD 13:58
PROVIDERS: PCP Nurse Practitioner Family; Visit Provider Internal Medicine
DX: J44.9 Chronic obstructive pulmonary disease, unspecified (principal); R91.1 Solitary pulmonary nodule; J84.10 Pulmonary fibrosis, unspecified; R59.0 Localized enlarged lymph nodes; K55.1 Chronic vascular disorders of intestine; G12.8 Other spinal muscular atrophies and related syndromes
CPT/HCPCS: 71260

== ENCOUNTER 2025-03-27 07:02 | Outpatient (CLI) | payer MEDICAID, SELFPAY ==
[2025-03-27 07:37] VITALS: PULSE 68; RESP 18; O2SAT 98
== END 2025-03-27 07:03 | disposition home or self-care (01) ==
LOC: RT 07:06
PROVIDERS: PCP Nurse Practitioner Family; Visit Provider Internal Medicine
DX: J44.9 Chronic obstructive pulmonary disease, unspecified (principal)
CPT/HCPCS: 94060; 94726; 94729; J7613

== ENCOUNTER 2025-03-29 20:33 | Emergency (ER) | payer MEDICAID, SELFPAY ==
[2025-03-29 20:42] VITALS: BP 127/77; PULSE 95; RESP 14; TEMP 36.7; O2SAT 98; BMI 28.5
--- NOTE | 2025-03-29 21:40 | XRR_ITS ---
PROCEDURE INFORMATION: Exam: XR Left Knee Exam date and time: 03/29/2025 9:42 PM Age: 59 years old Clinical indication: C/O left knee pain. No injury. TECHNIQUE: Imaging protocol: Radiologic exam of the left knee. Views: 3 views. COMPARISON: CR XR knee LT 3V* [id number] 02/18/2025 10:26 AM FINDINGS: Bones/joints: Minimal tricompartmental joint space narrowing. Joint spaces otherwise aligned and maintained. No large volume effusion. No identified fracture or dislocation. Soft tissues: Normal. XR/XR knee LT 3V* [id number] IMPRESSION: No identified acute osseous abnormality.
--- NOTE | 2025-03-29 21:46 | W.ED.EXTPRO ---
HPI - Extremity Problem General: Chief complaint: Extremity Problem,Nontraumatic Stated complaint: suddenly can not bear weight on Left leg Time Seen by Provider: 03/29/25 21:21 History of Present Illness: Patient is a 59-year-old female who presents to the ED with left leg pain. She initially saw her primary care physician who diagnosed her with arthritis and recommended physical therapy if symptoms persisted after two weeks. Patient reports that the pain is not consistent with her known arthritis (which affects her hands and elbows). She describes the pain as 'excruciating' when standing or walking on the affected leg. Pain is primarily located behind the left knee and surrounding soft tissue. Patient noticed a lump behind her knee recently, which raised concerns about a possible blood clot given her history of DVT. She reports numbness and tingling in her toes. Conservative measures including ice, heat, using a cane, and a compression brace have not provided relief. The pain has significantly limited her mobility, making it difficult to get in and out of bed, use the bathroom, and dress herself. She has been taking ibuprofen for pain with limited relief. Related Data Home Medications ?Medication ?Instructions ?Recorded ?Confirmed albuterol 4 puff inhalation PRN 02/27/24 03/18/25 Previous Rx's ?Medication ?Instructions ?Recorded epinephrine 0.3 mg/0.3 mL 0.3 mg (0.3 mL) IM Q4H PRN 01/29/24 injection, auto-injector (EpiPen anaphylaxis #2 ea 2-Jose) atorvastatin 20 mg tablet (Lipitor) 20 mg PO DAILY #30 tabs 02/18/25 albuterol sulfate 90 mcg/actuation 2 puff inhalation QID PRN 03/11/25 aerosol inhaler (Ventolin HFA) shortness of breath or wheezing #6.7 grams nicotine 21 mg/24 hr daily 1 patch transdermal DAILY #28 ea 03/18/25 transdermal patch umeclidinium 62.5 mcg-vilanterol 1 inh inhalation DAILY #60 ea 03/19/25 25 mcg/actuation powdr for inhalation (Anoro Ellipta) montelukast 10 mg tablet 10 mg PO DAILY #30 tabs 03/21/25 (Singulair) mucus clearing device #1 ea 03/21/25 diclofenac sodium 50 mg 50 mg PO Q8H PRN pain #30 tabs 03/30/25 tablet,delayed release lidocaine 5 % topical patch 1 patch topical DAILY #15 ea 03/30/25 Allergies Allergy/AdvReac Type Severity Reaction Status Date / Time azithromycin Allergy REY Verified 03/29/25 20:46 CECI ceftriaxone (From Rocephin) Allergy REY Verified 03/29/25 20:46 CECI ciprofloxacin (From Cipro) Allergy REY Verified 03/29/25 20:46 CECI latex Allergy ALGY-Redness Verified 03/29/25 20:46 of Skin levofloxacin (From Levaquin) Allergy REY Verified 03/29/25 20:46 CECI morphine Allergy Unknown Verified 03/29/25 20:46 nitrofurantoin (From Allergy REY Verified 03/29/25 20:46 Macrobid) CECI penicillin G Allergy blotches Verified 03/29/25 20:46 prednisone Allergy steroid Verified 03/29/25 20:46 psychosis Sulfa (Sulfonamide Allergy REY Verified 03/29/25 20:46 Antibiotics) [facility]I [facility] ED PFSH: Medical History Arthritis Hyperlipidemia Family History Father CAD (coronary artery disease) Diabetes Family history of premature coronary artery disease Hyperlipidemia Hypertension Lung disease Stroke Mother Cancer Hyperlipidemia Hypertension Grandfather Cancer Grandmother Clotting disorder Denies family history of Dementia Psychiatric illness Chronic kidney disease (CKD) Suicide Anesthesia complication Bleeding disorder Social History Smoking and tobacco/nicotine status: current every day tobacco/nicotine user (1/2 ppd X 33 years) Alcohol intake: current Alcohol intake frequency: 3 or more drinks per day Alcohol type: beer Substance/Drug Use: never Marital status: / Physical Exam Const: COMMON NORMALS: no acute distress GENERAL APPEARANCE: cooperative; not ill appearing and not frail appearing HENMT: COMMON NORMALS: normocephalic, atraumatic and Normal external nose present HEAD & SCALP: normocephalic and atraumatic FACE & SINUS: normal facial exam and face symmetric NOSE: Normal external nose present Eye: COMMON NORMALS: Equal, round and reactive pupils present and EOMs intact bilaterally PUPIL: Yes Equal, round and reactive pupils present Neck/C-Spine: GENERAL: Yes trachea midline Chest: CHEST: Yes Symmetrical chest wall rise Resp: COMMON NORMALS: normal respiratory effort, No retractions, No use of accessory muscles and clear to auscultation bilaterally AUSCULTATION: clear to auscultation bilaterally Cardio: COMMON NORMALS: regular rate and regular rhythm RATE: regular rate RHYTHM: regular rhythm GI: COMMON NORMALS: Normal to inspection, nondistended, normoactive bowel sounds present Extremity: COMMON NORMALS: no pedal edema NARRATIVE EXTREMITY EXAM: Examination of the left lower extremity reveals no deformity. There is mild joint line tenderness over the medial left knee. There is some posterior popliteal knee tenderness. There is pain with flexion actively. She has full extension. There is no knee joint effusion. No redness. No calf pain. Negative Homans. Pulses are normal to the foot. Sensation and capillary refill are normal as well. Logroll testing of the hip is negative. There is no hip tenderness. No significant thigh tenderness. Neuro: HAILEY COMA SCALE: document GCS findings Bird In Hand coma scale eye opening: Spontaneous Bird In Hand coma scale verbal response: Orientated Hailey coma scale motor response: Obey commands Bird In Hand coma scale total score: 15 SENSORY EXAM: Yes extremities (intact) Psych: COMMON NORMALS: speech normal SPEECH: Yes normal speech Skin: COMMON NORMALS: no rashes or lesions noted GENERAL SKIN EXAM: no rashes or lesions noted Course Vital Signs: Vital signs: Vital Signs Temperature 98.0 F 03/29/25 20:42 Pulse Rate 95 03/29/25 20:42 Respiratory Rate 14 03/29/25 20:42 Blood Pressure 127/77 03/29/25 20:42 Pulse Oximetry 98 03/29/25 20:42 MDM - Extremity (Nontraumatic) Medical Decision Making 59-year-old female with posterior left knee pain. She is afebrile. No evidence of cellulitis. No infection. No knee effusion on exam. X-ray is negative of the knee. Doppler ultrasound performed due to concern of potential DVT as the patient has had a history is negative. Will treat symptomatically. PCP follow-up. Return for any problems such as fever, swelling, redness, etc. Lab Data Radiology Impressions Knee X-Ray 03/29/25 21:40 IMPRESSION: No identified acute osseous abnormality. Venous Duplex 03/30/25 21:40 IMPRESSION: No identified DVT. All radiology interpretation(s) finalized by discharge Discharge Plan Discharge Patient Disposition: Home Clinical Impression: Acute pain of left knee Condition: Stable Prescriptions: New diclofenac sodium 50 mg tablet,delayed release (DR/EC) 50 mg PO Q8H PRN (Reason: pain) Qty: 30 0RF lidocaine 5 % adhesive patch,medicated 1 patch topical DAILY Qty: 15 0RF Rx Instructions: leave on most painful area for up to 12 hrs No Action epinephrine [EpiPen 2-Jose] 0.3 mg/0.3 mL auto-injector 0.3 mg IM Q4H PRN (Reason: anaphylaxis) Qty: 2 1RF albuterol sulfate [Ventolin HFA] 90 mcg/actuation HFA aerosol inhaler 2 puff inhalation QID PRN (Reason: shortness of breath or wheezing) Qty: 6.7 5RF atorvastatin [Lipitor] 20 mg tablet 20 mg PO DAILY Qty: 30 2RF nicotine 21 mg/24 hr patch 24 hour 1 patch transdermal DAILY Qty: 28 0RF umeclidinium-vilanterol [Anoro Ellipta] 62.5-25 mcg/actuation blister with device 1 inh inhalation DAILY Qty: 60 11RF (DME) mucus clearing device Device See Rx Instructions .MEDSUPPLY Qty: 1 0RF Rx Instructions: As directed montelukast [Singulair] 10 mg tablet 10 mg PO DAILY Qty: 30 11RF albuterol 4 puff inhalation PRN Discharge Orders: Discharge ED (Routine); Ordered 03/30/25 Ordered By: Mark Lowery Referrals: Ann Tsai FNP-C [Primary Care Provider, Family Practice] - 1-3 days Patient Instructions: Knee Pain (ED), Opioid Safety, Pain Management, Patient Portal & Asha Instructions Activity Restrictions/Additional Instructions: Call your doctor Monday morning for a follow-up appointment. Return for problems such as fever, increasing swelling, redness, other concerns.. You may use both medications to manage your pain. Print Language: Slovak Coding Level of Care Code ED Health Concierge for Pam Rose
--- NOTE | 2025-03-30 21:40 | USR_ITS ---
PROCEDURE INFORMATION: Exam: US Duplex Left Lower Extremity Veins, Limited Exam date and time: 03/30/2025 12:56 AM Age: 59 years old Clinical indication: Pain; Leg, lower; Left; Additional info: Leg pain, swelling TECHNIQUE: Imaging protocol: Real-time duplex ultrasound of the left extremity with 2-D cedeño scale, color Doppler flow and spectral waveform analysis including responses to compression and other maneuvers (when performed) with image documentation. Limited exam focused on the left lower extremity veins. COMPARISON: CR (LOW EXM, ) 03/29/2025 9:42 PM FINDINGS: Left deep veins: Unremarkable. The common femoral, femoral, proximal profunda femoral and popliteal veins are patent without thrombus. Normal Doppler waveforms. Normal compressibility and/or augmentation response. Superficial veins: Greater saphenous vein at the saphenofemoral junction is patent without thrombus. Soft tissues: Unremarkable. US/CV venous duplex [facility] [id number] IMPRESSION: No identified DVT.
== END 2025-03-30 01:40 | disposition home or self-care (01) ==
PROVIDERS: Emergency Provider Emergency Medicine; PCP Nurse Practitioner Family
DX: M25.562 Pain in left knee (principal); F17.210 Nicotine dependence, cigarettes, uncomplicated; E78.5 Hyperlipidemia, unspecified
CPT/HCPCS: 73562; 93971; 96372; 99284; J1885; J9999

== ENCOUNTER → 2025-06-03 10:15 | Outpatient (BNVA) | payer MEDICAID, SELFPAY | PROVIDERS: PCP Nurse Practitioner Family; Visit Provider Nurse Practitioner Family | DX: E78.5 Hyperlipidemia, unspecified (principal); M79.662 Pain in left lower leg; M79.89 Other specified soft tissue disorders; M77.52 Other enthesopathy of left foot and ankle; M77.32 Calcaneal spur, left foot | CPT/HCPCS: 73610; 80053; 80061; 84443; 85025 ==